=== PATIENT | female | born 1990 | race Caucasian/White ===

== ENCOUNTER 2022-07-06 13:28 | Emergency (ER) | payer OTHER, SELFPAY ==
--- NOTE | ~2022-07-06 | US_ITS ---
EXAMINATION: US PELVIS CLINICAL INFORMATION: IUD placement, assess location. COMPARISON: None TECHNIQUE: Ultrasound of the pelvis is performed using both transabdominal and transvaginal transducers along with Doppler. Transvaginal imaging is performed due to inadequate visualization transabdominally. FINDINGS: Uterus: Anteverted/anteflexed measuring 8.5 x 3.0 x 4.0 cm. The endometrial stripe measures up to 0.5 cm at the level the fundus. The IUD is positioned within the endometrial canal at the level of the body with tip just inferior to the fundus. The cervix is closed without abnormality. No free fluid in the cul-de-sac. Right ovary: measures 4.3 x 3.5 x 3.8 cm. 30 cc volume. Doppler showed no abnormal vascular flow. Left ovary: measures 3.3 x 3.0 x 2.8 cm. 15 cc volume. Doppler showed no abnormal vascular flow. US/US pelvic and transvaginal IMPRESSION: 1. IUD seen within the endometrial canal just inferior to the fundus without associated abnormality.
--- NOTE | ~2022-07-06 | CT_ITS ---
EXAMINATION: CT ABDOMEN AND PELVIS WITHOUT CONTRAST CLINICAL INFORMATION: Lower abdominal/pelvic pain COMPARISON: Pelvic ultrasound earlier today which was normal TECHNIQUE: Multidetector volumetric imaging was performed from the superior aspect of the liver through the pubic symphysis. Sagittal and coronal reformatted images were obtained on the technologist's workstation. This CT examination was performed using dose optimization techniques as appropriate, variously including the following: *Automated exposure control *Adjustment of mA and/or kV according to patient size (this includes techniques or standardized protocols for targeted exams where dose is matched to indication/reason for exam; i.e. extremities or head) *Use of iterative reconstruction technique DLP: 543 mGy-cm FINDINGS: LUNG BASES: The visualized lung bases are unremarkable. LIVER, GALLBLADDER, AND BILIARY TREE: The liver is normal in size, shape, and attenuation. No focal hepatic lesion or biliary ductal dilatation is present. The gallbladder is unremarkable with no evidence of radiopaque gallstones, gallbladder wall thickening, or obvious pericholecystic inflammatory changes. PANCREAS: Unremarkable. SPLEEN: Unremarkable. ADRENAL GLANDS: Unremarkable. KIDNEYS AND URETERS: The kidneys are normal in size, shape, and attenuation. No hydronephrosis, hydroureter, or calculi seen. No perinephric stranding. BLADDER: Empty but unremarkable GASTROINTESTINAL TRACT: The small and large bowel are unremarkable. The appendix is unremarkable. ABDOMINAL WALL: No significant hernia is appreciated. LYMPH NODES: No retroperitoneal lymphadenopathy is seen. Some small shotty lymph nodes are present. VASCULAR: Unremarkable. PELVIC VISCERA: 2 adjacent cysts are present in the left adnexa one more anteriorly measuring 2.6 x 2.4 x 2.8 cm and 1 just behind is in front of the rectum measuring 3.7 x 3.0 x 3.5 cm. These are consistent with the simple cysts seen in both the right as well as left ovary. No follow-up should be necessary. An anteverted uterus is seen containing an IUD. OSSEOUS STRUCTURES: Unremarkable. CT/CT abdomen pelvis wo IV con IMPRESSION: 1. A cause for the patient's lower abdominal pain has not been found. 2. Incidental note made of bilateral ovarian cysts which need no further follow-up and an IUD in the uterus. Fleischner guidelines were followed.
--- NOTE | 2022-07-06 13:36 | ED_ITS ---
HPI - Female Genitourinary General Chief complaint: Urogenital-Female <Luzmaria Ricketts CNP - Last Filed: 07/06/22 13:42> Stated complaint: IUD complications <Luzmaria Ricketts CNP - Last Filed: 07/06/22 13:42> Time Seen by Provider: 07/06/22 16:25 <Luzmaria Ricketts CNP - Last Filed: 07/06/22 13:42> Source: patient <ARABELLA Ferreira - Last Filed: 07/06/22 19:16> Mode of arrival: ambulatory <ARABELLA Ferreira - Last Filed: 07/06/22 19:16> Limitations: no limitations <ARABELLA Ferreira - Last Filed: 07/06/22 19:16> History of Present Illness HPI Narrative: 31-year-old female presents with concerns of vaginal discharge status post getting her IUD placed, patient tells me 2 weeks ago she [facility], since then she has been having pelvic pain, large amounts of discharge, she tells me this is never happened to her before. They tested her for gonorrhea and [facility]lamydia [facility]. She has no concerns for STDs, she tells me she has had 1 sexual partner this entire time. She is not concerned about . She reports lower abdominal cramping and she feels like something just isn't right where her IUD is. Denies fevers, chills, chest pain, shortness of breath, nausea, vomiting, headache, vision changes, dizziness and weakness. <ARABELLA Ferreira - Last Filed: 07/06/22 19:16> Related Data Home medications: Previous Rx's Medication Instructions Recorded ketorolac 10 mg tablet 10 mg PO TID PRN pain 5 days #15 07/06/22 tabs <Luzmaria Ricketts CNP - Last Filed: 07/06/22 13:42> Allergies/Adverse reactions: Allergies Allergy/AdvReac Type Severity Reaction Status Date / Time cefaclor [From [facility]] Allergy Unknown Unknown Verified 07/06/22 13:40 <Luzmaria Ricketts CNP - Last Filed: 07/06/22 13:42> Review of Systems Review of Systems: Constitutional : No Weight loss, No Fever, No Chills, No Fatigue, No Malaise ENT/Mouth : No sore throat, No Rhinorrhea Eyes: No Eye Pain, No Swelling, No Redness Cardiovascular : No Chest Pain, No SOB, No Dyspnea on Exertion, No Orthopnea, No Edema, No Palpitations Respiratory : No Cough, No Sputum, No Wheezing Gastrointestinal : No Nausea, No Vomiting, No Diarrhea, No Constipation, No abdominal Pain, No Hematochezia, No Melena Genitourinary : No Dysuria, No Urinary Frequency, No Hematuria, + vaginal discharge Musculoskeletal : No joint pain, No Myalgias, No Joint Swelling Skin : No Skin Lesions, No rash Neuro : No Weakness, No Numbness, No Dizziness, No Headache Psych : No Anxiety/Panic, No Depression All other systems reviewed and are negative <ARABELLA Ferreira - Last Filed: 07/06/22 19:16> Yes all other systems are reviewed and are negative <ARABELLA Ferreira - Last Filed: 07/06/22 19:16> [facility] Past Medical History Attestation statement: The following information was validated with the patient. <ARABELLA Ferreira - Last Filed: 07/06/22 19:16> Source: old records reviewed and nursing notes reviewed <ARABELLA Ferreira - Last Filed: 07/06/22 19:16> Social History Social History: Social History Advance Directives: No Advance Directives Information Provided: No <Luzmaria Ricketts CNP - Last Filed: 07/06/22 13:42> Physical Exam Vital Signs: Vital Signs: Last Vital Signs Temp 98.2 F 07/06/22 18:00 Pulse 98 07/06/22 18:00 Resp 16 07/06/22 18:00 BP 129/88 07/06/22 18:00 Pulse Ox 100 07/06/22 18:00 O2 Del Method 07/06/22 18:00 BMI result Body Mass Index 31.1 <Luzmaria Ricketts CNP - Last Filed: 07/06/22 13:42> Vital Signs: Last Vital Signs Temp 98.2 F 07/06/22 18:00 Pulse 98 07/06/22 18:00 Resp 16 07/06/22 18:00 BP 129/88 07/06/22 18:00 Pulse Ox 100 07/06/22 18:00 O2 Del Method 07/06/22 18:00 BMI result Body Mass Index 31.1 vss <ARABELLA Ferreira - Last Filed: 07/06/22 19:16> Appearance: Alert.? Oriented X3.? No acute distress.? Head: Normocephalic, atraumatic, no step-offs or deformities Eyes: Pupils equal, round and reactive to light.? Neck: Normal inspection.? Neck supple.? CVS: Normal heart rate and rhythm.? Pulses normal.? Respiratory: No respiratory distress.? Breath sounds normal.? Abdomen: Soft and nontender.? Skin: Skin warm and dry.? Normal skin color.? Normal skin turgor.? Extremities: No lower extremity edema.? No calf ttp. 5/5 strength to bilateral upper and lower extremities Sensitive exam: large amount of curdlike discharge and yellow discharge in vaginal canal. Normal cervix w/ IUD strings visible about 1 inch visualized. Small ulcerated nonpainful lesions on vaginal canal Back: No midline tenderness, no C-spine tenderness, full range of motion, no CVA tenderness bilaterally Neuro: Oriented X 3.? No motor deficit.? No sensory deficit. CN 2-12 intact <ARABELLA Ferreira - Last Filed: 07/06/22 19:16> Course Course Course Narrative: This is an RME: Additional HPI, ROS, PE not included below will be deferred to primary provider. Patient is a 31 female who presents emergency department for evaluation of IUD concern. Reports 2 weeks ago she [facility]. Over the past 2 days she has been developing sharp pain, change in vaginal discharge; large yellow thick mucus. She is unable to feel the strings of her IUD. Denies pain with intercourse after insertion, but the was prior to her pain. Plan: labs, BV panel, urinalysis, hCG, pelvic ultrasound <Luzmaria Ricketts CNP - Last Filed: 07/06/22 13:42> Reevaluation(s) Reevaluation #1: CBC appears to be within normal limits. Chemistry with no acute findings requiring intervention. UA clean. Urine negative. Pelvic ultrasound with an IUD seen within the endometrial canal just inferior to the fundus without associated abnormality. CT of the abdomen and pelvis unremarkable. A cause for patient's lower abdominal pain not found. Incidental note made of b ilateral ovarian cyst. This case was discussed with OBGYN Dr. Rodrigues who recommends removal of IUD that is causing patient significant discomfort, I did have a conversation with patient patient would like the IUD removed, Dr. Rodrigues does recommend secondary control method, patient tells me she has control pills at home which she was taking before and tolerating well. Will remove IUD. <ARABELLA Ferreira - Last Filed: 07/06/22 19:16> Time: 19:15 <ARABELLA Ferreira - Last Filed: 07/06/22 19:16> Reevaluation #2: IUD removal successful, there was a very small amount of spotting afterwards. Patient tolerated procedure well. No complications. Will have her follow-up with OBGYN. Will give Toradol for pain control for home. Educated patient on diagnosis and treatment plan, answered all question, patient verbalizes understanding. At this time patient will be discharged home, advised to return with new or worsening symptoms. Educated on worrisome signs and symptoms and when to return. At this time I feel comfortable discharge home. <ARABELLA Ferreira - Last Filed: 07/06/22 19:16> Time: 19:16 <ARABELLA Ferreira - Last Filed: 07/06/22 19:16> Medications Administered Discontinued Medications Generic Name Dose Route Start Last Admin Trade Name Freq PRN Reason Stop Dose Admin Ketorolac Tromethamine 15 mg 07/06/22 17:19 07/06/22 17:27 Ketorolac Tromethamine 15 Mg/Ml Vial IM 07/06/22 17:20 Not Given ONCE ONE <Luzmaria Ricketts CNP - Last Filed: 07/06/22 13:42> Medications Administered Discontinued Medications Generic Name Dose Route Start Last Admin Trade Name Freq PRN Reason Stop Dose Admin Ketorolac Tromethamine 15 mg 07/06/22 17:19 07/06/22 17:27 Ketorolac Tromethamine 15 Mg/Ml Vial IM 07/06/22 17:20 Not Given ONCE ONE <ARABELLA Ferreira - Last Filed: 07/06/22 19:16> Medical Decision Making Medical Decision Making [facility] Narrative: 1710 31 year old female presents w/ concerns she may have an issue with her IUD, reports yellow white vaginal discharge. PE w/ large amount of curdlike discharge and yellow discharge in vaginal canal. Normal cervix w/ IUD strings visible about 1 inch visualized. Small ulcerated nonpainful lesions on vaginal canal Concerns for STD, STI, yeast. Also concerning for possible HPV. Likely irritation secondary to placement of new copper IUD. Unlikely intra-abdominal processes, history and physical exam not consistent with appendicitis, cholecystitis or acute abdomen. Plan at this time basic labs, urine, STD/STI testing, pelvic exam, ultrasound, CT of the abdomen and pelvis. <ARABELLA Ferreira Last Filed: 07/06/22 19:16> Differential Diagnosis Differential Diagnoses: The differential diagnosis associated with the presentation includes <ARABELLA Ferreira - Last Filed: 07/06/22 19:16> Concerns for STD, STI, yeast. Also concerning for possible HPV. Likely irritation secondary to placement of new copper IUD. Unlikely intra-abdominal processes, history and physical exam not consistent with appendicitis, cholecystitis or acute abdomen. <ARABELLA Ferreira - Last Filed: 07/06/22 19:16> Admission/Observation Consideration of admission/observation: Escalation of care including admission/observation considered <ARABELLA Ferreira - Last Filed: 07/06/22 19:16> Lab Data [facility] Lab Attestation statement: I reviewed the patient's lab results. <ARABELLA Ferreira - Last Filed: 07/06/22 19:16> Reviewed, unremarkable <ARABELLA Ferreira - Last Filed: 07/06/22 19:16> Result Diagrams: 07/06/22 13:51 07/06/22 13:51 <Luzmaria Ricketts CNP - Last Filed: 07/06/22 13:42> Labs: Lab Results 03/11/2107/06/22 07/06/22 Range/Units 13:51 13:51 17:21 WBC 8.7 (4.8-10.8) X10*3/uL RBC 4.56 (4.20-5.50) X10*6/uL Hgb 13.3 (12.0-16.0) g/dl Hct 41.0 (37.0-47.0) % MCV 89.9 (80.0-98.0) fL MCH 29.2 (27.0-33.0) pg MCHC 32.4 (31.0-35.0) g/dl RDW 12.8 (11.0-16.0) % Plt Count 325 (160-400) X10*3/uL MPV 11.4 (9.4-12.3) fL Immature Gran % (Auto) 0.3 (0.0-0.4) % Neut % (Auto) 64.0 (45-73) % Lymph % (Auto) 27.4 (20-40) % Benzie % (Auto) 7.1 (2-11) % Eos % (Auto) 0.7 (0-4) % Baso % (Auto) 0.5 (0-2) % Lymph # (Auto) 2.4 (1.2-4.9) X10*3/uL Benzie # (Auto) 0.6 (0.1-1.2) X10*3/uL Eos # (Auto) 0.1 (0.0-0.4) X10*3/uL Baso # (Auto) 0.0 (0.0-0.2) X10*3/uL Abs Immat Gran (auto) 0.03 (0.00-0.03) X10*3/uL Absolute Neuts (auto) 5.6 (2.0-8.3) x10*3/uL Absolute Nucleated RBC 0.000 (0.0-0.012) X10*3/uL Nucleated RBC % (auto) 0.0 (0.0-0.2) /100WBC Sodium 140 (135-145) mmol/L Potassium 4.3 (3.3-5.1) mmol/L Chloride 106 (96-108) mmol/L Carbon Dioxide 25 (22-29) mmol/L Anion Gap 13 (12-20) BUN 14 (9-16) mg/dL Creatinine 0.68 (0.5-1.4) mg/dL Estim Creat Clear Calc 117.3 Estimated GFR > 60 Random Glucose 95 (60-115) mg/dL Calcium 9.7 (8.4-10.2) mg/dL Total Bilirubin 0.5 (0.0-1.0) mg/dL AST 17 (5-31) U/L ALT 25 (0-31) U/L Alkaline Phosphatase 65 (39-117) U/L Total Protein 6.7 (6.5-8.0) g/dL Albumin 4.1 (3.5-5.0) g/dL Urine Color Yellow Urine Appearance Clear Urine pH 6.5 (5.0-9.0) Ur Specific [facility] 1.015 (1.005-1.025) Urine Protein Negative (Neg-Trace) mg/dL Urine Glucose (UA) Negative (Negative) mg/dL Urine Ketones Trace (Negative) mg/dL Urine Blood Negative (Negative) Urine Nitrite Negative (Negative) Ur Leukocyte Esterase Negative (Negative) Urine Test (NEGATIVE) 07/06/22 Range/Units 17:21 WBC (4.8-10.8) X10*3/uL RBC (4.20-5.50) X10*6/uL Hgb (12.0-16.0) g/dl Hct (37.0-47.0) % MCV (80.0-98.0) fL MCH (27.0-33.0) pg MCHC (31.0-35.0) g/dl RDW (11.0-16.0) % Plt Count (160-400) X10*3/uL MPV (9.4-12.3) fL Immature Gran % (Auto) (0.0-0.4) % Neut % (Auto) (45-73) % Lymph % (Auto) (20-40) % Benzie % (Auto) (2-11) % Eos % (Auto) (0-4) % Baso % (Auto) (0-2) % Lymph # (Auto) (1.2-4.9) X10*3/uL Benzie # (Auto) (0.1-1.2) X10*3/uL Eos # (Auto) (0.0-0.4) X10*3/uL Baso # (Auto) (0.0-0.2) X10*3/uL Abs Immat Gran (auto) (0.00-0.03) X10*3/uL Absolute Neuts (auto) (2.0-8.3) x10*3/uL Absolute Nucleated RBC (0.0-0.012) X10*3/uL Nucleated RBC % (auto) (0.0-0.2) /100WBC Sodium (135-145) mmol/L Potassium (3.3-5.1) mmol/L Chloride (96-108) mmol/L Carbon Dioxide (22-29) mmol/L Anion Gap (12-20) BUN (9-16) mg/dL Creatinine (0.5-1.4) mg/dL Estim Creat Clear Calc Estimated GFR Random Glucose (60-115) mg/dL Calcium (8.4-10.2) mg/dL Total Bilirubin (0.0-1.0) mg/dL AST (5-31) U/L ALT (0-31) U/L Alkaline Phosphatase (39-117) U/L Total Protein (6.5-8.0) g/dL Albumin (3.5-5.0) g/dL Urine Color Urine Appearance Urine pH (5.0-9.0) Ur Specific [facility] (1.005-1.025) Urine Protein (Neg-Trace) mg/dL Urine Glucose (UA) (Negative) mg/dL Urine Ketones (Negative) mg/dL Urine Blood (Negative) Urine Nitrite (Negative) Ur Leukocyte Esterase (Negative) Urine Test NEGATIVE (NEGATIVE) <Luzmaria Ricketts, APPLICATION OPERATIONS ENGINEER - Last Filed: 07/06/22 13:42> Lab Results 07/06/22 07/06/22 07/06/22 Range/Units 13:51 13:51 17:21 WBC 8.7 (4.8-10.8) X10*3/uL RBC 4.56 (4.20-5.50) X10*6/uL Hgb 13.3 (12.0-16.0) g/dl Hct 41.0 (37.0-47.0) % MCV 89.9 (80.0-98.0) fL MCH 29.2 (27.0-33.0) pg MCHC 32.4 (31.0-35.0) g/dl RDW 12.8 (11.0-16.0) % Plt Count 325 (160-400) X10*3/uL MPV 11.4 (9.4-12.3) fL Immature Gran % (Auto) 0.3 (0.0-0.4) % Neut % (Auto) 64.0 (45-73) % Lymph % (Auto) 27.4 (20-40) % Benzie % (Auto) 7.1 (2-11) % Eos % (Auto) 0.7 (0-4) % Baso % (Auto) 0.5 (0-2) % Lymph # (Auto) 2.4 (1.2-4.9) X10*3/uL Benzie # (Auto) 0.6 (0.1-1.2) X10*3/uL Eos # (Auto) 0.1 (0.0-0.4) X10*3/uL Baso # (Auto) 0.0 (0.0-0.2) X10*3/uL Abs Immat Gran (auto) 0.03 (0.00-0.03) X10*3/uL Absolute Neuts (auto) 5.6 (2.0-8.3) x10*3/uL Absolute Nucleated RBC 0.000 (0.0-0.012) X10*3/uL Nucleated RBC % (auto) 0.0 (0.0-0.2) /100WBC Sodium 140 (135-145) mmol/L Potassium 4.3 (3.3-5.1) mmol/L Chloride 106 (96-108) mmol/L Carbon Dioxide 25 (22-29) mmol/L Anion Gap 13 (12-20) BUN 14 (9-16) mg/dL Creatinine 0.68 (0.5-1.4) mg/dL Estim Creat Clear Calc 117.3 Estimated GFR > 60 Random Glucose 95 (60-115) mg/dL Calcium 9.7 (8.4-10.2) mg/dL Total Bilirubin 0.5 (0.0-1.0) mg/dL AST 17 (5-31) U/L ALT 25 (0-31) U/L Alkaline Phosphatase 65 (39-117) U/L Total Protein 6.7 (6.5-8.0) g/dL Albumin 4.1 (3.5-5.0) g/dL Urine Color Yellow Urine Appearance Clear Urine pH 6.5 (5.0-9.0) Ur Specific [facility] 1.015 (1.005-1.025) Urine Protein Negative (Neg-Trace) mg/dL Urine Glucose (UA) Negative (Negative) mg/dL Urine Ketones Trace (Negative) mg/dL Urine Blood Negative (Negative) Urine Nitrite Negative (Negative) Ur Leukocyte Esterase Negative (Negative) Urine Test (NEGATIVE) 07/06/22 Range/Units 17:21 WBC (4.8-10.8) X10*3/uL RBC (4.20-5.50) X10*6/uL Hgb (12.0-16.0) g/dl Hct (37.0-47.0) % MCV (80.0-98.0) fL MCH (27.0-33.0) pg MCHC (31.0-35.0) g/dl RDW (11.0-16.0) % Plt Count (160-400) X10*3/uL MPV (9.4-12.3) fL Immature Gran % (Auto) (0.0-0.4) % Neut % (Auto) (45-73) % Lymph % (Auto) (20-40) % Benzie % (Auto) (2-11) % Eos % (Auto) (0-4) % Baso % (Auto) (0-2) % Lymph # (Auto) (1.2-4.9) X10*3/uL Benzie # (Auto) (0.1-1.2) X10*3/uL Eos # (Auto) (0.0-0.4) X10*3/uL Baso # (Auto) (0.0-0.2) X10*3/uL Abs Immat Gran (auto) (0.00-0.03) X10*3/uL Absolute Neuts (auto) (2.0-8.3) x10*3/uL Absolute Nucleated RBC (0.0-0.012) X10*3/uL Nucleated RBC % (auto) (0.0-0.2) /100WBC Sodium (135-145) mmol/L Potassium (3.3-5.1) mmol/L Chloride (96-108) mmol/L Carbon Dioxide (22-29) mmol/L Anion Gap (12-20) BUN (9-16) mg/dL Creatinine (0.5-1.4) mg/dL Estim Creat Clear Calc Estimated GFR Random Glucose (60-115) mg/dL Calcium (8.4-10.2) mg/dL Total Bilirubin (0.0-1.0) mg/dL AST (5-31) U/L ALT (0-31) U/L Alkaline Phosphatase (39-117) U/L Total Protein (6.5-8.0) g/dL Albumin (3.5-5.0) g/dL Urine Color Urine Appearance Urine pH (5.0-9.0) Ur Specific [facility] (1.005-1.025) Urine Protein (Neg-Trace) mg/dL Urine Glucose (UA) (Negative) mg/dL Urine Ketones (Negative) mg/dL Urine Blood (Negative) Urine Nitrite (Negative) Ur Leukocyte Esterase (Negative) Urine Test NEGATIVE (NEGATIVE) <ARABELLA Ferreira Last Filed: 07/06/22 19:16> Independent Interpretation I performed an independent interpretation of an: Ultrasound (. IUD seen within the endometrial canal just inferior to the fundus without associated abnormality. ) and CT Scan <ARABELLA Ferreira - Last Filed: 07/06/22 19:16> Radiology Impression Discussion of test interpretation with radiology: I have reviewed the radiologist's reading. <ARABELLA Ferreira - Last Filed: 07/06/22 19:16> Core Measures AMI core measures followed: Yes <RAABELLA Ferreira Last Filed: 07/06/22 19:16> Measure exclusions: not indicated <ARABELLA Ferreira - Last Filed: 07/06/22 19:16> Critical Care Time Critical Care Time Critical Care Time: Yes <ARABELLA Ferreira Last Filed: 07/06/22 19:16> Total Critical Care Time: 35 <ARABELLA Ferreira - Last Filed: 07/06/22 19:16> Attestation: I attest to this time spent taking care of the patient, obtaining history, physical, reviewing labs, imaging, speaking to my attending, speaking to specialist. <ARABELLA Ferreira - Last Filed: 07/06/22 19:16> Discharge Plan Discharge Clinical Impression: Pelvic pain, Vaginal discharge, Encounter for IUD removal <Luzmaria Ricketts CNP - Last Filed: 07/06/22 13:42> Patient Disposition: Home, Self-Care <Luzmaria Ricketts CNP - Last Filed: 07/06/22 13:42> Instructions: Pelvic Pain in Women (ED), Pelvic Pain (ED), Vaginal Discharge (ED), Warm Compress or Soak (ED) <Luzmaria Ricketts CNP - Last Filed: 07/06/22 13:42> Additional Instructions: Take your medications as prescribed. If you were prescribed antibiotics today, it is important that you take your medication to their entirety, do not skip any doses, do not finish them early. Follow-up with your primary care provider this week. Please follow-up with OBGYN as soon as possible call tomorrow Return to the emergency department with new or worsening symptoms. Such as fevers, chills, chest pain, shortness of breath, nausea, vomiting, dizziness, headache, vision changes, lethargy Also return to the emergency department if your bleeding through more than 1 pad every 2 hours In case of emergency call 911 Your gonorrhea, chlamydia, bacterial vaginosis test still pending. Your test for Trichomonas and yeast came back negative today. Toradol has been sent to your pharmacy, you tolerated this well in the department. Please take this as prescribed do not take this with ibuprofen, or other NSAIDs, do not mix this with alcohol. Side effects of this medication including increased risk for bleeding and possible kidney injury. US/US pelvic and transvaginal IMPRESSION: 1. IUD seen within the endometrial canal just inferior to the fundus without associated abnormality. CT/CT abdomen pelvis wo IV con IMPRESSION: 1.? A cause for the patient's lower abdominal pain has not been found. 2.? Incidental note made of bilateral ovarian cysts which need no further follow-up and an IUD in the uterus. ? Fleischner guidelines were followed. <Luzmaria Ricketts CNP - Last Filed: 07/06/22 13:42> Prescriptions: New ketorolac 10 mg tablet 10 mg PO TID PRN (Reason: pain) 5 Days Qty: 15 0RF <Luzmaria Ricketts CNP - Last Filed: 07/06/22 13:42> Referrals: Etienne Jerome PA [Primary Care Provider] - 2 days Yonny Rodrigues MD [Physician] - 1 day <Luzmaria Ricketts CNP - Last Filed: 07/06/22 13:42> Stand Alone Forms: Work/School Release <Luzmaria Ricketts CNP - Last Filed: 07/06/22 13:42>
[2022-07-06 13:38] VITALS: BP 149/96; PULSE 88; RESP 18; TEMP 36.8; O2SAT 99; BMI 31.1
[2022-07-06 13:58] LABS: MANUAL DIFF FLAG NO
[2022-07-06 14:05] LABS: Basophils Percent Auto 0.5 % (0-2); Eosinophils Absolute Auto 0.1 X10*3/uL (0.0-0.4); Eosinophils Percent Auto 0.7 % (0-4); Hemoglobin 13.3 g/dl (12.0-16.0); Imm Gran Abs Auto 0.03 X10*3/uL (0.00-0.03); Imm Gran Pct Auto 0.3 % (0.0-0.4); Lymphocytes Absolute Auto 2.4 X10*3/uL (1.2-4.9); Lymphocytes Percent Auto 27.4 % (20-40); Mean Corpuscular HGB Conc 32.4 g/dl (31.0-35.0); Mean Corpuscular Hemoglobin 29.2 pg (27.0-33.0); Mean Corpuscular Volume 89.9 fL (80.0-98.0); Mean Platelet Volume 11.4 fL (9.4-12.3); Monocytes Absolute Auto 0.6 X10*3/uL (0.1-1.2); Monocytes Percent Auto 7.1 % (2-11); Neutrophils Absolute Auto 5.6 x10*3/uL (2.0-8.3); Platelet Count 325 X10*3/uL (160-400); Red Blood Count 4.56 X10*6/uL (4.20-5.50); Red Cell Distribution Width 12.8 % (11.0-16.0); White Blood Count 8.7 X10*3/uL (4.8-10.8)
[2022-07-06 14:28] LABS: Alanine Aminotransferase 25 U/L (0-31); Albumin Level 4.1 g/dL (3.5-5.0); Alkaline Phosphatase 65 U/L (39-117); Anion Gap 13 (12-20); Aspartate Amino Transferase 17 U/L (5-31); Bilirubin Total 0.5 mg/dL (0.0-1.0); Blood Urea Nitrogen 14 mg/dL (9-16); Calcium 9.7 mg/dL (8.4-10.2); Carbon Dioxide 25 mmol/L (22-29); Chloride 106 mmol/L (96-108); Creatinine Clr Calc Pharmacy 117.3; Estimated Glomerular Filt Rate > 60; Glucose Random 95 mg/dL (60-115); Potassium 4.3 mmol/L (3.3-5.1); Sodium 140 mmol/L (135-145); Total Protein 6.7 g/dL (6.5-8.0)
[2022-07-06 17:45] LABS: Appearance Urine Clear; Color Urine Yellow; Glucose Urine UA Negative (Negative); Leukocyte Esterase Urine Negative (Negative); Nitrite Urine Negative (Negative); PH 6.5 (5.0-9.0); Specific Gravity - Urine 1.015 (1.005-1.025); Urine Blood Negative (Negative); Urine Ketones Trace mg/dL (Negative); Urine Protein Negative (Neg-Trace)
[2022-07-06 17:54] LABS: UPreg QC Valid YES; Urine Pregnancy NEGATIVE (NEGATIVE)
[2022-07-06 18:00] VITALS: BP 129/88; PULSE 98; RESP 16; TEMP 36.8; O2SAT 100
--- NOTE | 2022-07-06 19:20 | P.CONOB_ITS ---
INFORMATION TECHNOLOGY COORDINATOR - CN: HPI Data of Consult Consult date: 07/06/22 Primary Care Provider: ARABELLA Dowell Consult Narrative Narrative: Late entry note I was consulted on Maeve Jimenes is a 31 year old female presenting the emergency room complaining of pelvic discomfort 2 weeks after IUD insertion associated with vaginal discharge with no itching or foul odor .? According to the patient, she [facility] and both [facility].? No fevers, chills, no nausea, vomiting, no other concerns. cc:: CC: OB [facility] Social History Social History Advance Directives: No Advance Directives Information Provided: No Meds Allergies Allergy/AdvReac Type Severity Reaction Status Date / Time cefaclor [From Ceclor] Allergy Unknown Unknown Verified 07/06/22 13:40 INFORMATION TECHNOLOGY COORDINATOR Physical Exam Vitals Vital signs: Temp Pulse Resp BP Pulse Ox O2 Del Method 98.2 F 98 16 129/88 100 07/06/22 18:00 07/06/22 18:00 07/06/22 18:00 07/06/22 18:00 07/06/22 18:00 07/06/22 18:00 BMI result Body Mass Index 31.1 Additional Comments: Reported by suicide in the car ARABELLA Ferreira as the following: Abdomen: Soft and nontender.? Pelvic exam: large amount of discharge and yellow discharge in vaginal canal. Normal cervix w/ IUD strings visible . Vaginal lesions non ulcerated looking like condyloma acuminata INFORMATION TECHNOLOGY COORDINATOR - Results Labs 07/06/22 13:51 07/06/22 13:51 Labs: Short CBC 07/06/22 Range/Units 13:51 WBC 8.7 (4.8-10.8) X10*3/uL Hgb 13.3 (12.0-16.0) g/dl Hct 41.0 (37.0-47.0) % Plt Count 325 (160-400) X10*3/uL BMP 07/06/22 13:51 Sodium 140 Potassium 4.3 Chloride 106 Carbon Dioxide 25 BUN 14 Creatinine 0.68 Calcium 9.7 Liver Function 07/06/22 Range/Units 13:51 Total Bilirubin 0.5 (0.0-1.0) mg/dL AST 17 (5-31) U/L ALT 25 (0-31) U/L Alkaline Phosphatase 65 (39-117) U/L Albumin 4.1 (3.5-5.0) g/dL Urine 07/06/22 07/06/22 Range/Units 17:21 17:21 Urine Color Yellow Urine Appearance Clear Urine pH 6.5 (5.0-9.0) Ur Specific [place] 1.015 (1.005-1.025) Urine Protein Negative (Neg-Trace) mg/dL Urine Glucose (UA) Negative (Negative) mg/dL Urine Test NEGATIVE (NEGATIVE) Imaging US - abdomen: Radiologist's impression: ITS Impressions Pelvic/Transvag US 07/06/22 14:14 IMPRESSION: 1. IUD seen within the endometrial canal just inferior to the fundus without associated abnormality. Abdomen/Pelvis CT 07/06/22 18:13 IMPRESSION: 1. A cause for the patient's lower abdominal pain has not been found. 2. Incidental note made of bilateral ovarian cysts which need no further follow-up and an IUD in the uterus. Fleischner guidelines were followed. Assessment and Plan (1) IUD complication: Status: Acute (2) Vaginal discharge: Status: Acute Plan Recommended to ARABELLA Grant the following: GC/chlamydia, BV panel Trichomonas if any of the above tests are positive to treat accordingly. Since the patient's complaining of pelvic discomfort since the day of IUD insertion and the location of the IUD by ultrasound is inferior to the fundus, recommended IUD removal. Instructions to be given to patient to come back to emergency room in case of pelvic pain, fever above 100.4, nausea or vomiting, heavy vaginal bleeding and follow-up in the OBGYN office in 1-2 days 40 evaluation and counseling regarding contraception, and to use a backup method for control till then to prevent . I spent a total of 20 minutes reviewing the chart, communicating the emergency room provider and documenting in the medical record Time Spent With Patient Time: Total time managing care of this patient today ____ minutes.
[2022-07-06] MEDS: Ketorolac Tromethamine 15 MG/ML VIAL 30 MG IM (20:34)
[2022-07-07 09:16] LABS: CT PCR NOT DETECTED (Not Detect.); NG PCR NOT DETECTED (Not Detect.)
[2022-07-07 09:39] LABS: BV Int Neg Control Negative (Negative); BV Int Pos Control Positive (Positive)
== END 2022-07-06 20:44 | disposition home or self-care (01) ==
PROVIDERS: Nurse Practitioner Family; Emergency Provider Emergency Medicine; PCP Physician Assistant Medical
DX: N89.8 Other specified noninflammatory disorders of vagina (principal); R10.2 Pelvic and perineal pain; Z30.432 Encounter for removal of intrauterine contraceptive device; Z79.899 Other long term (current) drug therapy
CPT/HCPCS: 0353U; 36415; 58301; 74176; 76830; 76856; 80053; 81003; 81025; 85025; 87480; 87510; 87660; 96372; 99283; 99284; J1885

== ENCOUNTER 2022-07-19 09:19 | Outpatient (REF) | payer OTHER, SELFPAY | END 2022-07-19 09:20 | disposition home or self-care (01) | LOC: HO.LNP 09:19 | PROVIDERS: PCP Physician Assistant Medical; Visit Provider Obstetrics & Gynecology | DX: Z01.419 Encounter for gynecological examination (general) (routine) without abnormal findings (principal) | CPT/HCPCS: 81025; 88142 ==

== ENCOUNTER 2023-05-16 22:30 | Emergency (ER) | payer OTHER, SELFPAY ==
--- NOTE | 2023-05-16 | ECG_ITS ---
Test Reason : NAUSEA Blood Pressure : / mmHG Vent. Rate : 098 BPM Atrial Rate : 098 BPM P-R Int : 140 ms QRS Dur : 088 ms QT Int : 352 ms P-R-T Axes : 051 055 028 degrees QTc Int : 449 ms Normal sinus rhythm Normal ECG No previous ECGs available Referred By: Generic ED Physician Electronically Signed By:SENG PEREIRA
[2023-05-16 22:56] VITALS: BP 116/87; PULSE 112; RESP 18; TEMP 37.3; O2SAT 96; BMI 35.9
[2023-05-16] MEDS: Ondansetron ODT 4 MG TAB.RAPDIS TRANSLINGU (23:02)
[2023-05-16 23:34] LABS: MANUAL DIFF FLAG NO
[2023-05-16 23:36] LABS: Basophils Percent Auto 0.4 % (0-2); Eosinophils Percent Auto 0.1 % (0-4); Hematocrit 45.3 % (37.0-47.0); Hemoglobin 15.3 g/dl (12.0-16.0); Imm Gran Abs Auto 0.02 X10*3/uL (0.00-0.03); Imm Gran Pct Auto 0.3 % (0.0-0.4); Lymphocytes Absolute Auto 0.5 X10*3/uL (1.2-4.9); Lymphocytes Percent Auto 6.7 % (20-40); Mean Corpuscular HGB Conc 33.8 g/dl (31.0-35.0); Mean Corpuscular Hemoglobin 29.4 pg (27.0-33.0); Mean Corpuscular Volume 87.1 fL (80.0-98.0); Mean Platelet Volume 11.2 fL (9.4-12.3); Monocytes Absolute Auto 0.4 X10*3/uL (0.1-1.2); Monocytes Percent Auto 6.2 % (2-11); Neutrophils Absolute Auto 5.9 x10*3/uL (2.0-8.3); Neutrophils Percent Auto 86.3 % (45-73); Platelet Count 315 X10*3/uL (160-400); Red Cell Distribution Width 13.2 % (11.0-16.0); White Blood Count 6.8 X10*3/uL (4.8-10.8)
[2023-05-16 23:52] LABS: Alanine Aminotransferase 20 U/L (0-31); Alkaline Phosphatase 63 U/L (39-117); Anion Gap 17 (12-20); Aspartate Amino Transferase 14 U/L (5-31); Bilirubin Total 0.5 mg/dL (0.0-1.0); Blood Urea Nitrogen 20 mg/dL (9-16); Calcium 8.9 mg/dL (8.4-10.2); Carbon Dioxide 18 mmol/L (22-29); Chloride 106 mmol/L (96-108); Creatinine Clr Calc Pharmacy 107.9; Estimated Glomerular Filt Rate > 60; Glucose Random 149 mg/dL (60-115); Lipase 16 U/L (8-78); Potassium 3.3 mmol/L (3.3-5.1); Sodium 138 mmol/L (135-145); Total Protein 7.6 g/dL (6.5-8.0)
[2023-05-16 23:58] LABS: COVID-19 Test Negative (Negative); IDNOW Serial# 08D9AD1C; IDNOW Serial# 152EDE1D; Influenza A Negative (Negative); Influenza B2 Negative (Negative)
[2023-05-17 01:57] VITALS: BP 111/74; PULSE 97; RESP 16; TEMP 37.2; O2SAT 95
[2023-05-17 04:12] VITALS: BP 116/75; PULSE 87; RESP 17; TEMP 37.1; O2SAT 96
--- NOTE | 2023-05-17 04:31 | ED.NAVMDI ---
HPI - Nausea/Vomiting/Diarrhea General Chief complaint: Nausea/Vomiting/Diarrhea Stated complaint: vomiting,diarrhea x48 days Time Seen by Provider: 05/17/23 04:24 Source: patient Mode of arrival: ambulatory Limitations: no limitations History of Present Illness HPI Narrative: Patient comes to the emergency room complaining of 2-3 days of nausea vomiting and diarrhea. Complaining of abdominal cramping. Patient denies URI or UTI symptoms Related Data Previous Rx's Medication Instructions Recorded ketorolac 10 mg tablet 10 mg PO TID PRN pain 5 days #15 07/06/22 tabs desogestrel-e.estradiol 0.15 1 tab PO DAILY #84 tabs 04/18/23 mg-0.02 mg(21)/e.estrad 0.01 mg(5) tablet ([place] (28)) loperamide 2 mg capsule 2 mg PO Q4H PRN loose stool #20 05/17/23 caps ondansetron 4 mg disintegrating 4 mg PO Q6H PRN nausea and 05/17/23 tablet vomiting #14 tabs Allergies Allergy/AdvReac Type Severity Reaction Status Date / Time cefaclor [From [facility]] Allergy Unknown Unknown Verified 05/16/23 22:56 Review of Systems Review of Systems: Constitutional : No Weight loss, No Fever, No Chills, No Night Sweats, No Fatigue, No Malaise ENT/Mouth : No Hearing loss, No Ear Pain, No Nasal Congestion, No Sinus Pain, No Hoarseness, No sore throat, No Rhinorrhea, No Swallowing Difficulty Eyes: No Eye Pain, No Swelling, No Redness, No Foreign Body, No Discharge, No Vision Changes Cardiovascular : No Chest Pain, No SOB, No Dyspnea on Exertion, No Orthopnea, No Edema, No Palpitations Respiratory : No Cough, No Sputum, No Wheezing, No Smoke Exposure, No Dyspnea Gastrointestinal : Complaining of nausea vomiting and diarrhea for 3 days, No Constipation, complaining of abdominal cramping, No Hematochezia, No Melena Genitourinary : no irregular bleeding, No Dysuria, No Urinary Frequency, No Hematuria, No Urinary Incontinence, No Urgency, No Flank Pain, No Urinary Flow Changes, No Hesitancy Musculoskeletal : No joint pain, No Myalgias, No Joint Swelling Skin : No Skin Lesions, No rash Neuro : No Weakness, No Numbness, No Paresthesias, No Loss of Consciousness, No Dizziness, No Headache Psych : No Anxiety/Panic, No Depression, No SI/HI/AH/VH, No Social Issues, Heme/Lymph: No Bruising, No Bleeding,No Lymphadenopathy Endocrine : No Polyuria, No Polydipsia, No Temperature Intolerance [facility] Social History Social History Advance Directives: No Advance Directives Information Provided: No Physical Exam Vital Signs: Vital Signs: Last Vital Signs Temp 98.7 F 05/17/23 04:12 Pulse 84 05/17/23 05:58 Resp 17 05/17/23 05:58 BP 98/63 05/17/23 05:58 Pulse Ox 98 05/17/23 05:58 O2 Del Method Room Air 05/17/23 05:58 BMI result Body Mass Index 35.9 Const: Other: Appearance: Alert. Oriented X3. No acute distress. Eyes: Pupils equal, round and reactive to light. ENT: Pharynx normal. Dry oral mucosa Neck: Normal inspection. Neck supple. No lymph nodes noted. No crepitus CVS: Normal heart rate and rhythm. Pulses normal. Normal S1 and S2 Respiratory: No respiratory distress. Breath sounds normal. No Wheezing. No rales Abdomen: Soft and nontender. No rigidity. No distention. Skin: Skin warm and dry. Normal skin color. Normal skin turgor. Extremities: No lower extremity edema. No Lacerations. No Rash Neuro: Oriented X 3. No motor deficit. No sensory deficit. Moving all extremities. No slurred speech. CN 2 through 12 grossly intact Psych: calm, cooperative, normal affect Course Course Course Narrative: -patient receiving IV fluids, IV Zofran p.o. loperamide Medications Administered Generic Name Dose Route Start Last Admin Trade Name Freq PRN Reason Stop Dose Admin Sodium Chloride 1,000 mls @ 999 mls/hr 05/17/23 06:06 05/17/23 06:12 Ns IVCONT 05/17/23 07:06 999 mls/hr .Q1H1M ONE Administration Discontinued Medications Generic Name Dose Route Start Last Admin Trade Name Freq PRN Reason Stop Dose Admin Sodium Chloride 1,000 mls @ 999 mls/hr 05/17/23 04:30 05/17/23 05:39 Ns IVCONT 05/17/23 05:30 Infused .Q1H1M ONE Infusion Loperamide HCl 4 mg 05/17/23 04:30 05/17/23 04:39 Loperamide Hcl 2 Mg Capsule PO 05/17/23 04:31 4 mg ONCE ONE Administration Ondansetron HCl 4 mg 05/16/23 23:00 05/16/23 23:02 Ondansetron Odt 4 Mg Tab.Rapdis TRANSLINGU 05/16/23 23:01 4 mg ONCE ONE Administration Ondansetron HCl 4 mg 05/17/23 04:30 05/17/23 04:39 Ondansetron Hcl 4 Mg/2 Ml Vial IVPUSH 05/17/23 04:31 4 mg ONCE ONE Administration Medical Decision Making Medical Decision Making [facility] Narrative: -my interpretation of labs: Hematology within normal limits, chemistry shows mild dehydration, urinalysis negative for UTI -patient likely having a viral syndrome Differential Diagnosis Differential Diagnoses: The differential diagnosis associated with the presentation includes (Started this, gastroenteritis, UTI, pyelonephritis, dehydration) Admission/Observation Consideration of admission/observation: Escalation of care including admission/observation considered (Patient seemed to be dehydrated when she came to the ED, admission was considered) Lab Data [facility] Lab Attestation statement: I reviewed the patient's lab results. 05/16/23 23:25 05/16/23 23:25 Labs: Lab Results 05/16/23 05/17/23 Range/Units 23:25 06:00 WBC 6.8 (4.8-10.8) X10*3/uL RBC 5.20 (4.20-5.50) X10*6/uL Hgb 15.3 (12.0-16.0) g/dl Hct 45.3 (37.0-47.0) % MCV 87.1 (80.0-98.0) fL MCH 29.4 (27.0-33.0) pg MCHC 33.8 (31.0-35.0) g/dl RDW 13.2 (11.0-16.0) % Plt Count 315 (160-400) X10*3/uL MPV 11.2 (9.4-12.3) fL Immature Gran % (Auto) 0.3 (0.0-0.4) % Neut % (Auto) 86.3 H (45-73) % Lymph % (Auto) 6.7 L (20-40) % [place] % (Auto) 6.2 (2-11) % Eos % (Auto) 0.1 (0-4) % Baso % (Auto) 0.4 (0-2) % Lymph # (Auto) 0.5 L (1.2-4.9) X10*3/uL [place] # (Auto) 0.4 (0.1-1.2) X10*3/uL Eos # (Auto) 0.0 (0.0-0.4) X10*3/uL Baso # (Auto) 0.0 (0.0-0.2) X10*3/uL Abs Immat Gran (auto) 0.02 (0.00-0.03) X10*3/uL Absolute Neuts (auto) 5.9 (2.0-8.3) x10*3/uL Absolute Nucleated RBC 0.000 (0.0-0.012) X10*3/uL Nucleated RBC % (auto) 0.0 (0.0-0.2) /100WBC Sodium 138 (135-145) mmol/L Potassium 3.3 (3.3-5.1) mmol/L Chloride 106 (96-108) mmol/L Carbon Dioxide 18 L (22-29) mmol/L Anion Gap 17 (12-20) BUN 20 H (9-16) mg/dL Creatinine 0.76 (0.5-1.4) mg/dL Estim Creat Clear Calc 107.9 Estimated GFR > 60 Random Glucose 149 H (60-115) mg/dL Calcium 8.9 D (8.4-10.2) mg/dL Total Bilirubin 0.5 (0.0-1.0) mg/dL AST 14 (5-31) U/L ALT 20 (0-31) U/L Alkaline Phosphatase 63 (39-117) U/L Total Protein 7.6 (6.5-8.0) g/dL Albumin 4.0 (3.5-5.0) g/dL Lipase 16 (8-78) U/L Urine Color Yellow Urine Appearance Clear Urine pH 5.5 (5.0-9.0) Ur Specific [place] >= 1.030 H (1.005-1.025) Urine Protein Trace (Neg-Trace) mg/dL Urine Glucose (UA) Negative (Negative) mg/dL Urine Ketones 15 (Negative) mg/dL Urine Blood Negative (Negative) Urine Nitrite Negative (Negative) Ur Leukocyte Esterase Negative (Negative) COVID-19 ([facility]) Negative (Negative) COVID-19 Clin Com See Note Influenza Type A (JACOB) Negative (Negative) Influenza Type B (JACOB) Negative (Negative) Influenza A & B Note See Note Critical Care Time Critical Care Time Critical Care Time: Yes Total Critical Care Time: 45 Attestation: I have personally provided critical care time. Time includes review of lab data, radiology results, discussion with consultants, and monitoring for potential decompensation. Intervention performed as documented. Discharge Plan Discharge Clinical Impression: Nausea vomiting and diarrhea Patient Disposition: Home, Self-Care Instructions: Acute Nausea and Vomiting (ED), Acute Diarrhea (ED) Additional Instructions: Please follow-up with your primary care physician tomorrow. If you have any worsening or new symptoms, please return to the emergency room or call 911 Prescriptions: New ondansetron 4 mg tablet,disintegrating 4 mg PO Q6H PRN (Reason: nausea and vomiting) Qty: 14 0RF loperamide 2 mg capsule 2 mg PO Q4H PRN (Reason: loose stool) Qty: 20 0RF Rx Instructions: administer after each loose stool until symptoms controlled; do not exceed 8 mg per 24 hrs No Action desog-e.estradiol/e.estradiol [Kariva (28)] 0.15-0.02 mgx21 /0.01 mg x 5 tablet 1 tab PO DAILY Qty: 84 3RF Rx Instructions: Skip placebo pills and start new pack ketorolac 10 mg tablet 10 mg PO TID PRN (Reason: pain) 5 Days Qty: 15 0RF Stand Alone Forms: Work/School Release
[2023-05-17] MEDS: 0.9 % Sodium Chloride 1,000 ML 999 ML IVCONT ×2 (04:39→06:12)
[2023-05-17] MEDS: Loperamide HCl 2 MG CAPSULE 4 MG PO (04:39)
[2023-05-17] MEDS: ondansetron HCL 4 MG/2 ML VIAL IVPUSH (04:39)
--- NOTE | 2023-05-17 05:41 | PC.NURSE ---
Pt ambulatory to restroom to provide urine sample.
[2023-05-17 05:58] VITALS: BP 98/63; PULSE 84; RESP 17; O2SAT 98
[2023-05-17 06:07] LABS: Appearance Urine Clear; Color Urine Yellow; Glucose Urine UA Negative (Negative); Leukocyte Esterase Urine Negative (Negative); Nitrite Urine Negative (Negative); PH 5.5 (5.0-9.0); Specific Gravity - Urine >= 1.030 (1.005-1.025); Urine Blood Negative (Negative); Urine Ketones 15 mg/dL (Negative); Urine Protein Trace mg/dL (Neg-Trace)
== END 2023-05-17 07:03 | disposition home or self-care (01) ==
PROVIDERS: Emergency Provider Emergency Medicine; PCP Physician Assistant Medical
DX: R11.2 Nausea with vomiting, unspecified (principal); R19.7 Diarrhea, unspecified; Z11.52 Encounter for screening for COVID-19
CPT/HCPCS: 80053; 81003; 83690; 85025; 87502; 87635; 93005; 96361; 96374; 99284; 99285; J2405

== ENCOUNTER → 2023-05-16 23:12 | Outpatient (BNV) | payer OTHER, SELFPAY | PROVIDERS: Emergency Provider Emergency Medicine; PCP Physician Assistant Medical; Visit Provider Internal Medicine | DX: R11.0 Nausea (principal) | CPT/HCPCS: 93010 ==

== ENCOUNTER 2023-11-22 15:04 | Outpatient (REF) | payer OTHER, SELFPAY ==
[2023-11-24 07:18] LABS: CT PCR NOT DETECTED (Not Detect.); NG PCR NOT DETECTED (Not Detect.)
[2023-11-24 11:20] LABS: Bacterial Vaginosis PCR NEGATIVE (Negative); Candida Group PCR NOT DETECTED (Not Detect); Candida glab krusei PCR NOT DETECTED (Not Detect); Trichomonas vaginalis PCR NOT DETECTED (Not Detect)
== END 2023-11-22 15:05 | disposition home or self-care (01) ==
LOC: HO.LNP 15:04
PROVIDERS: PCP Physician Assistant Medical; Visit Provider Obstetrics & Gynecology
DX: N76.0 Acute vaginitis (principal); B96.89 Other specified bacterial agents as the cause of diseases classified elsewhere
CPT/HCPCS: 0352U; 87491; 87591

== ENCOUNTER 2023-11-22 15:04 | Outpatient (AMB) | payer OTHER, SELFPAY ==
[2023-11-22 15:06] VITALS: BP 126/84; BMI 38.9
--- NOTE | 2023-11-22 15:06 | A.OFFVIS_ITS ---
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 Complaining of amenorrhea after 3 years of continuous control pills the patient discontinued her control pills and since then has been having no menstrual cycle with no associated nipple discharge and or hair growth, in addition the patient is complaining of vulvovaginal discharge associated with malodor Last Pap was negative in 07/22 [facility] Surgical History Hx of wisdom tooth extraction Family History Father Skin cancer HTN (hypertension) Paternal Grandmother Skin cancer Heart attack Mother HTN (hypertension) Paternal Grandfather Stroke Maternal Grandfather Stroke Social History Household Members: None Housing: Apartment Alcohol intake: never Current occupational status: employed 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 Sexually active: No Sexual orientation: Straight/Heterosexual Gender identity: Female Female Reproductive History Menstrual Total pregnancies: 0 Date of last pap smear: 07/21/22 Review of Systems Const All systems reviewed & are unremarkable except as noted in HPI and below Card Reports as per HPI Resp Reports as per HPI GI Reports as per HPI and Reports no additional complaints Reports as per HPI Physical Exam Vital Signs: Last Vital Signs BP 126/84 11/22/23 15:06 BMI result Body Mass Index 38.9 Const General: cooperative, healthy appearing and comfortable Chest Chest palpation & inspection: normal inspection of the chest and normal palpation of entire chest wall Breast/axilla inspection: normal inspection of the breasts and normal inspection of the axillae Breast/axilla palpation: normal palpation of the breasts, normal palpation of the axillae and no axillary lymphadenopathy Resp Effort & Inspection: normal respiratory effort Auscultation: clear to auscultation bilaterally Percussion: percussion normal Cardio Palpation: normal PMI Rate: regular rate Rhythm: regular rhythm Heart sounds: no murmurs and no rubs Peripheral pulses: Peripheral pulses 2+ throughout GI Inspection: Yes normal to inspection Palpation (GI): Soft to palpation, nontender, no guarding, not rigid and No hepatosplenomegaly present Percussion: Yes normal to percussion Auscultation: normal bowel sounds Rectal Exam - Female: deferred General: Yes bladder normal to palpation External Female Exam: No lesion Speculum Exam - Vagina: normal appearance of the vagina, normal palpation, normal vaginal discharge and not erythematous Speculum Exam - Cervix: normal appearance of the cervix and normal palpation Bimanual exam- vagina & uterus: normal bimanual exam, normal palpation, uterine size normal, bladder normal to palpation, consistency normal and normal palpation Bimanual Exam- Adnexa, other: normal adnexae, no masses and no tenderness Assessment & Plan Assessment & Plan (1) Well woman exam: Code(s): Z01.419 - Encounter for gynecological examination (general) (routine) without abnormal findings Category: Medical Plan: Cotesting not indicated this year. Counseled the patient about the recommended dietary allowance of 1000 mg of Calcium & 600 IU of vitamin D. The patient was instructed to perform monthly self-breast exams and to schedule an annual exam in a year; All questions answered and the patient verbalized understanding. Instructed the patient to schedule annual exam in a year (2) Bacterial vaginosis: Code(s): N76.0 - Acute vaginitis; B96.89 - Other specified bacterial agents as the cause of diseases classified elsewhere Category: Medical Plan: GC and chlamydia cultures with BV panel taken. Per CDC recommendation, will screen for STI, HepBs Ag, HIV, RPR, Hep C Ab ordered. Will treat with Flagyl 500 mg p.o. b.i.d. x 7 days, Instructions given to the patient to refrain from sexual activity or to use condoms consistently and correctly during the BV treatment regimen, not to douch, it might increase the risk for relapse, and to call if symptoms persist or recur. (3) Amenorrhea: Code(s): N91.2 - Amenorrhea, unspecified Category: Medical Plan: UPT done in the office was negative. Discussed with the patient the possible causes of amenorrhea including but not limited to anovulation, thyroid and prolactin disorders, , end organ problems (uterine synechiae), medication side effects and others. The workup includes to start with UPT, negative, this will be followed by a progesterone withdrawal test x 5 days if + bleeding this will be followed by TSH, PRL if negative then the diagnosis is anovulation. if no bleeding occurs will treat with Premarin x 21 days followed by Provera if no bleeding occurs will rule out Premature ovarian failure with F SH/LH. Provera 10 mg p.o. q.d. for 5 days was sent to the patient's pharmacy. Instructions given the patient to schedule a 2 week follow-up appointment. Orders: Orders Hepatitis B Surface Antigen Today B96.89 - Other specified bacterial agents as the cause of diseases classified elsewhere, N76.0 - Acute vaginitis Syphilis Screen Today B96.89 - Other specified bacterial agents as the cause of diseases classified elsewhere, N76.0 - Acute vaginitis HIV Ab/Ag Today B96.89 - Other specified bacterial agents as the cause of diseases classified elsewhere, N76.0 - Acute vaginitis Hepatitis C Antibody Today B96.89 - Other specified bacterial agents as the cause of diseases classified elsewhere, N76.0 - Acute vaginitis Medications: New metronidazole 500 mg PO BID 7 days 14 tabs 0RF medroxyprogesterone (Provera) 10 mg PO daily 5 days 5 tabs 0RF Discontinued desog-e.estradiol/e.estradiol 0.15-0.02 mgx21 /0.01 mg x 5 ([place] (28)) Skip placebo pills and start new pack Discontinued Reason: No Longer Medically Relevant 1 tab PO DAILY 84 tabs 0RF Coding Level of Care Code Est Pt Prev Care 40-64y(91479) Diagnoses Well woman exam Z01.419 Bacterial vaginosis N76.0; B96.89 Amenorrhea N91.2
== END 2023-11-22 15:41 | disposition home or self-care (01) ==
LOC: HO.HWS 15:04
PROVIDERS: PCP Physician Assistant Medical; Visit Provider Obstetrics & Gynecology
DX: Z01.419 Encounter for gynecological examination (general) (routine) without abnormal findings (principal); N76.0 Acute vaginitis; B96.89 Other specified bacterial agents as the cause of diseases classified elsewhere; N91.2 Amenorrhea, unspecified
CPT/HCPCS: 99395

== ENCOUNTER 2023-12-08 11:06 | Outpatient (AMB) | payer OTHER, SELFPAY ==
[2023-12-08 11:16] VITALS: BMI 38.7
--- NOTE | 2023-12-08 11:16 | MHC.OFFVIS ---
Vital Signs 12/08/23 11:16 Height 5 ft 1 in Weight 205 lb 0.478 oz BMI 38.7 Intake Visit Reasons: 2 weeks Menses follow up Allergies cefaclor [From Ceclor] Allergy (Unknown, Verified 11/22/23 15:12) Unknown HPI Comments Details: Presenting 2 weeks follow-up post progesterone withdrawal test. The patient to progesterone 10 mg p.o. q.d. for 5 days and no bleeding. But developed migraine headaches for 4 days after the last Provera. 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 q.d. for 29 days with concordant Provera for the last 10 days. If positive withdrawal test will order TSH and prolactin if negative progesterone withdrawal test and FSH LH. The patient would like to prevent another episode of headache stimulated by progesterone withdrawal. Will order FSH LH was TSH prolactin hCG. Instructions given to the patient to schedule a 2 week follow-up appointment. All questions answered, the patient verbalized understanding Orders: Orders Follicle Stimulating Hormone Today N91.2 - Amenorrhea, unspecified Prolactin Today N91.2 - Amenorrhea, unspecified 17 Hydroxyprogesterone Today N91.2 - Amenorrhea, unspecified Lutenizing Hormone Today N91.2 - Amenorrhea, unspecified TSH reflex Free T4 Today N91.2 - Amenorrhea, unspecified HCG Quantitative Today N91.2 - Amenorrhea, unspecified Testosterone, Free/Total Today N91.2 - Amenorrhea, unspecified Coding Level of Care Code Est Pt Level 3 (60247) Diagnoses Amenorrhea N91.2
== END 2023-12-08 11:26 | disposition home or self-care (01) ==
LOC: HO.HWS 11:06
PROVIDERS: PCP Physician Assistant Medical; Visit Provider Obstetrics & Gynecology
DX: N91.2 Amenorrhea, unspecified (principal)
CPT/HCPCS: 99213

== ENCOUNTER 2023-12-08 11:06 | Outpatient (REF) | payer OTHER, SELFPAY ==
[2023-12-08 12:41] LABS: HBsAGNum1 0.28 S/CO (0.00-0.99); HIV AB/AG Nonreactive (Nonreactive); HIV Num 1 0.06 S/CO (0.00-0.99); Hepatitis B Surface Antigen Negative (Negative); ~HepC Num1 0.09 S/CO (0.00-0.79); ~Hepatitis C Antibody Nonreactive (Nonreactive)
[2023-12-08 12:42] LABS: Syphilis Screen Nonreactive (Nonreactive)
[2023-12-08 12:46] LABS: HCG Quantitative < 2 mIU/mL; TSH reflex Free T4 1.54 uIU/mL (0.32-4.0)
[2023-12-09 07:13] LABS: Follicle Stimulating Hormone 10.2 mIU/mL; Prolactin 9.8 ng/mL
[2023-12-14 21:54] LABS: Testosterone, Free 2.1 pg/mL (0.1-6.4); Testosterone, Total 36 ng/dL (2-45)
== END 2023-12-08 11:07 | disposition home or self-care (01) ==
LOC: HO.LAB 11:06
PROVIDERS: PCP Physician Assistant Medical; Visit Provider Obstetrics & Gynecology
DX: N76.0 Acute vaginitis (principal); B96.89 Other specified bacterial agents as the cause of diseases classified elsewhere; N91.2 Amenorrhea, unspecified
CPT/HCPCS: 36415; 83001; 83002; 83498; 84146; 84402; 84403; 84443; 84702; 86780; 86803; 87340; 87389

== ENCOUNTER 2023-12-28 15:04 | Outpatient (AMB) | payer OTHER, SELFPAY ==
--- NOTE | 2023-12-28 15:09 | MHC.OFFVIS ---
Vital Signs 12/28/23 15:10 Height 5 ft 1 in Weight 205 lb 0.478 oz BMI 38.7 Intake Visit Reasons: 2 weeks labs follow up per Allergies cefaclor [From Ceclor] Allergy (Unknown, Verified 11/22/23 15:12) Unknown HPI Comments Details: Presenting for follow-up regarding amenorrhea. 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 Gender identity: Female Review of Systems Const All systems reviewed & are unremarkable except as noted in HPI and below Reports as per HPI and Reports no additional complaints GI Reports no additional complaints Reports no additional complaints Physical Exam Vital Signs: BMI result Body Mass Index 38.7 Assessment & Plan Assessment & Plan (1) Amenorrhea: Comment: Secondary to long-term use of control pills Code(s): N91.2 - Amenorrhea, unspecified Category: Medical Plan: Discussed with the patient the results of FSH LH, TSH, prolactin hCG and androgen levels, the diagnosis of amenorrhea secondary to long-term use of control pills. Will hold off any treatment. Instructions given the patient to call if amenorrhea persist within 2-3 months or if she develops AUB (2) Family planning: Code(s): Z30.09 - Encounter for other general counseling and advice on contraception Category: Social Hx Plan: Discussed with the patient the different options of control including control pills/Nuvaring, DMPA, different types of IUD ?s, sterilization. All the pros, cons, risks and benefits of each were discussed with the patient. The patient decided to go ahead with an IUD, so a more detailed discussion was carried on including types (Progesterone, Copper), mechanism of action, risks (infection, uterine perforation, failure with ectopic , septic AB, dysmenorrhea with Paraguard, others) benefits (efficient contraceptive method, hypo menorrhea with Progesterone IUD, others) GC/CG will be taken and the patient was asked to call day one of next cycle for IUD insertion. Coding Level of Care Code Est Pt Level 3 (37589) Diagnoses Amenorrhea N91.2 Family planning Z30.09
[2023-12-28 15:10] VITALS: BMI 38.7
== END 2023-12-28 16:11 | disposition home or self-care (01) ==
PROVIDERS: PCP Physician Assistant Medical; Visit Provider Obstetrics & Gynecology
DX: N91.2 Amenorrhea, unspecified (principal); Z30.09 Encounter for other general counseling and advice on contraception
CPT/HCPCS: 99213

== ENCOUNTER → 2023-12-28 15:04 | Outpatient (BNVA) | payer OTHER, SELFPAY | PROVIDERS: PCP Physician Assistant Medical; Visit Provider Obstetrics & Gynecology ==

== ENCOUNTER 2024-01-12 15:14 | Outpatient (AMB) | payer OTHER, SELFPAY ==
--- NOTE | 2024-01-12 15:28 | A.OFFVIS_ITS ---
Vital Signs 01/12/24 15:38 Height 5 ft 1 in Weight 205 lb 0.478 oz BMI 38.7 Intake Visit Reasons: Paragard insertion Special Effects Technician Required: No Information Interpreted: non-clinical & clinical Inspector Wire Products: Inspector Wire Products Present (Mini VENTURA) Accompanied by: Self / Same As Patient Allergies cefaclor [From Ceclor] Allergy (Unknown, Verified 01/12/24 15:39) Unknown Is last menstrual period known: Yes Last menstrual period: 12/28/23 HPI Comments Details: Presenting for ParaGard IUD insertion [facility] Medical History Migraine with aura Surgical History Hx of wisdom tooth extraction Family History Father Skin cancer HTN (hypertension) Paternal Grandmother Skin cancer Heart attack Mother HTN (hypertension) Paternal Grandfather Stroke Maternal Grandfather Stroke Social History Household Members: None Housing: Apartment Alcohol intake: never Current occupational status: employed 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 Her last menstrual period was within the last 5 days, Urine test was done in the office and was negative; All the contraindications were excluded. The following possible complications were discussed with the patient: Intrauterine , Ectopic , Sepsis, Pelvic Infection, Irregular Bleeding, Perforation, Expulsion. The possible adverse effects were discussed with the patient including but not limited to: increased uterine bleeding, dysmenorrhea , others Alternative options were discussed with the patient including but not limited: control pills, patch, NuvaRing, Depo-medroxyprogesterone acetate, Nexplanon, copper IUD, sterilization, vasectomy, others The procedure was explained in detail to patient , at the end patient signed the informed consent obtained. Urine test was done in the office and was negative A no touch technique was used throughout the procedure. A speculum was placed into vagina and cervix was cleaned with betadine). A tenaculum was placed. A plastic sound was advanced through the external and internal os until it reached the fundus of the uterus, the depth was 7 cm. The sound was then withdrawn. The ParaGard IUD was loaded in a sterile manner and advanced into position. The string was visualized and cut to 3 cm. Tenaculum site hemostatic. All instruments removed from vagina. Patient tolerated the procedure well. NO complications were noted. Patient was instructed to call for fever over 100.4, significant pain unrelieved by Motrin, IUD expulsion, heavy bleeding, or abnormal discharge. In addition, the following clinical considerations were discussed with the patient to call for removal: Unexplained fever , or suspected , Pelvic pain or pain during sex ,HIV positive seroconversion in herself or her partner , Possible exposure to sexually transmitted infections Unusual vaginal discharge or genital sores , severe vaginal bleeding or bleeding that lasts a long time, or if she misses a menstrual period, Inability to feel IUD s threads Counseled the patient that the IUD does not protect against STI's, recommended use of condoms for the first 7 days post insertion and explained to the patient that condoms are recommended for patients at risk for sexually transmitted infections. Follow up appointment made for 6 weeks following insertion. This note was generated with a voice recognition program. Some errors may have been overlooked during the review of this note. Sometimes these errors may affect the content or meaning of a given sentence. [id number] Insertion Procedure code (CPT) selection complete Office Meds ParaGard T 380A 380 square mm intrauterine device Performing Provider: Yonny Rodrigues MD Performing Location: [facility] Documented (not given) by: Yonny Rodrigues MD on 01/12/24 15:49 Dose Route Admin Location Dispensed Lot Number Expiration Date [facility] Power Sewing Machine Operator 1 device intrauterine ea Results AMB Test Urine AMB Test Urine Negative Last Edit by Mini Gay CMA on 15:41 Assessment & Plan Assessment & Plan (1) Encounter for insertion of ParaGard IUD: Code(s): Z30.430 - Encounter for insertion of intrauterine contraceptive device Category: Medical Plan: ParaGard IUD inserted, see procedure Orders: Orders AMB IUD Insertion/Removal - Practice Supplied Today Z30.430 - Encounter for insertion of intrauterine contraceptive device AMB HCG Urine Test Today Z32.02 - Encounter for test, result negative Medications: New ParaGard T 380A (copper) 1 device intrauterine ONCE 1 ea 0RF IUD insertion NS Z30.430 - Encounter for insertion of intrauterine contraceptive device Coding Level of Care Code Procedure Only Diagnoses Encounter for insertion of ParaGard IUD Z30.430 CPT Codes Details - CPT: 11692-OKJ Insertion ([id number])
[2024-01-12 15:38] VITALS: BMI 38.7
== END 2024-01-12 15:50 | disposition home or self-care (01) ==
PROVIDERS: PCP Physician Assistant Medical; Visit Provider Obstetrics & Gynecology
DX: Z30.430 Encounter for insertion of intrauterine contraceptive device (principal); Z32.02 Encounter for pregnancy test, result negative
CPT/HCPCS: 58300

== ENCOUNTER → 2024-01-12 15:14 | Outpatient (BNVA) | payer OTHER, SELFPAY | PROVIDERS: PCP Physician Assistant Medical; Visit Provider Obstetrics & Gynecology | DX: Z30.430 Encounter for insertion of intrauterine contraceptive device (principal) | CPT/HCPCS: 58300; 81025; J7300 ==

== ENCOUNTER 2024-03-05 14:45 | Outpatient (AMB) | payer OTHER, SELFPAY ==
--- NOTE | 2024-03-05 14:46 | MHC.OFFVIS ---
Vital Signs 03/05/24 14:47 Height 5 ft 1 in Weight 205 lb BMI 38.7 Intake Visit Reasons: IUD Check Allergies cefaclor [From Ceclor] Allergy (Unknown, Verified 03/05/24 14:47) Unknown HPI Comments Details: The patient is presenting for IUD check after 1 st period following IUD insertion. The patient has no complaints periods are heavier and prolonged, not painful, and flow is heavier than the usual. 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: Straight/Heterosexual Gender identity: Female Review of Systems Const All systems reviewed & are unremarkable except as noted in HPI and below Physical Exam Vital Signs: BMI result Body Mass Index 38.7 General: Yes no CVA tenderness External Female Exam: normal external appearance and normal appearance of the urethra Speculum Exam - Vagina: normal appearance of the vagina, normal palpation, no lesions and no masses Speculum Exam - Cervix: normal appearance of the cervix, normal palpation, no lesions, no masses, nontender and Other cervical findings present (IUD string in place) Bimanual exam- vagina & uterus: normal bimanual exam, normal palpation, uterine size normal, normal palpation, uterine shape normal, No Cervical tenderness present and non-tender Bimanual Exam- Adnexa, other: normal adnexae Back/Spine/Pelvis Back: no CVA tenderness Results AMB Test Urine AMB Test Urine Negative Last Edit by Chayo Bethea CMA on 03/05/24 14:55 Results Reviewed Results Reviewed: Laboratory Last Values [facility] Negative 03/05/24 14:47 Assessment & Plan Assessment & Plan (1) IUD check up: Code(s): Z30.431 - Encounter for routine checking of intrauterine contraceptive device Category: Medical Plan: UPT done in the office was negative. Discussed with the patient the finding on physical exam, IUD string in place, the patient was reassured. Instructions given to patient to call in case of temperature above 100.4, severe cramping/pelvic pain, abnormal discharge or abnormal uterine bleeding or if she misses her menstrual cycle. Otherwise follow-up at her annual exam appointment. All questions answered, the patient verbalized understanding. (2) Vaginal discharge: Code(s): N89.8 - Other specified noninflammatory disorders of vagina Category: Medical Plan: GC/BV taken, will check the results and treat accordingly. Orders: Orders AMB HCG Urine Test Today Z32.02 - Encounter for test, result negative Coding Level of Care Code Est Pt Level 3 (71290) Diagnoses IUD check up Z30.431 Vaginal discharge N89.8
[2024-03-05 14:47] VITALS: BMI 38.7
== END 2024-03-05 15:11 | disposition home or self-care (01) ==
LOC: HO.HWS 14:45
PROVIDERS: PCP Physician Assistant Medical; Visit Provider Obstetrics & Gynecology
DX: Z30.431 Encounter for routine checking of intrauterine contraceptive device (principal); N89.8 Other specified noninflammatory disorders of vagina; Z32.02 Encounter for pregnancy test, result negative
CPT/HCPCS: 99213

== ENCOUNTER 2024-03-05 14:45 | Outpatient (REF) | payer OTHER, SELFPAY ==
[2024-03-05 18:30] LABS: Bacterial Vaginosis PCR POSITIVE (Negative); Candida Group PCR DETECTED (Not Detect); Candida glab krusei PCR NOT DETECTED (Not Detect); Trichomonas vaginalis PCR NOT DETECTED (Not Detect)
[2024-03-06 05:36] LABS: CT PCR NOT DETECTED (Not Detect.); NG PCR NOT DETECTED (Not Detect.)
== END 2024-03-05 14:46 | disposition home or self-care (01) ==
LOC: HO.LNP 14:45
PROVIDERS: PCP Physician Assistant Medical; Visit Provider Obstetrics & Gynecology
DX: N98.9 Complication associated with artificial fertilization, unspecified (principal)
CPT/HCPCS: 0352U; 81025; 87491; 87591

== ENCOUNTER 2024-04-04 13:34 | Outpatient (REF) | payer OTHER, SELFPAY ==
[2024-04-04 18:12] LABS: Bacterial Vaginosis PCR NEGATIVE (Negative); Candida Group PCR NOT DETECTED (Not Detect); Candida glab krusei PCR NOT DETECTED (Not Detect); Trichomonas vaginalis PCR NOT DETECTED (Not Detect)
[2024-04-05 06:31] LABS: CT PCR NOT DETECTED (Not Detect.); NG PCR NOT DETECTED (Not Detect.)
== END 2024-04-04 13:35 | disposition home or self-care (01) ==
LOC: HO.LNP 13:34
PROVIDERS: PCP Physician Assistant Medical; Visit Provider Obstetrics & Gynecology
DX: N89.8 Other specified noninflammatory disorders of vagina (principal); T83.9XXA Unspecified complication of genitourinary prosthetic device, implant and graft, initial encounter; R31.29 Other microscopic hematuria; N83.291 Other ovarian cyst, right side; N83.292 Other ovarian cyst, left side
CPT/HCPCS: 0352U; 81025; 87086; 87491; 87591

== ENCOUNTER 2024-04-04 14:08 | Outpatient (AMB) | payer OTHER, SELFPAY ==
--- NOTE | 2024-04-04 13:44 | MHC.OFFVIS ---
Vital Signs 04/04/24 13:47 Height 5 ft 1 in Weight 202 lb 13.204 oz BMI 38.3 BP 122/74 Intake Visit Reasons: IUD removal Drill Bit Sharpener Required: No Information Interpreted: non-clinical & clinical Waist Pleater: Waist Pleater Present (Mini VNETURA) Accompanied by: Self / Same As Patient Allergies cefaclor [From Ceclor] Allergy (Unknown, Verified 04/04/24 13:53) Unknown HPI Comments Details: Presenting complaining of pelvic pain of 2 days' duration no associated fever or chills GI or urinary symptoms. The patient has been having greenish vaginal discharge since IUD insertion GC/CT were done were negative, BV was positive for Izzy and Gardnerella, the patient was treated with Terazol and Flagyl the vaginal discharge with not improve. 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: Straight/Heterosexual Gender identity: Female Review of Systems Const All systems reviewed & are unremarkable except as noted in HPI and below Physical Exam Vital Signs: Last Vital Signs BP 122/74 04/04/24 13:47 BMI result Body Mass Index 38.3 General: Yes no CVA tenderness External Female Exam: normal external appearance and normal appearance of the urethra Speculum Exam - Vagina: normal appearance of the vagina, normal palpation, no lesions and no masses Speculum Exam - Cervix: normal appearance of the cervix, normal palpation, no lesions, no masses and Other cervical findings present (IUD string seen) Bimanual exam- vagina & uterus: normal bimanual exam, normal palpation, uterine size normal, normal palpation, uterine shape normal, no cervical motion tenderness and nontender Bimanual Exam- Adnexa, other: normal adnexae Back/Spine/Pelvis Back: no CVA tenderness Results AMB Test Urine AMB Test Urine Negative Last Edit by Mini Gay CMA on 04/04/24 13:54 Results Reviewed Results Reviewed: Laboratory Last Values [facility] Clinic Negative 04/04/24 13:54 Assessment & Plan Assessment & Plan (1) IUD check up: Code(s): Z30.431 - Encounter for routine checking of intrauterine contraceptive device Category: Medical Plan: Urine test done in the office was negative. IUD by ultrasound seems to be in appropriate position will keep IUD in Situ. Instructions given the patient to call in case of fever above 100.4, pelvic pain or heavy vaginal bleeding (2) Complex cyst of both ovaries: Code(s): N83.291 - Other ovarian cyst, right side; N83.292 - Other ovarian cyst, left side Category: Medical Plan: Discussed with the patient the unofficial finding on ultrasound showing bilateral complex ovarian cyst. Discussed with the patient the Ultrasound findings, the main limitation of transvaginal ultrasonography alone as a diagnostic tool to distinguish benign from malignant masses relates to its lack of specificity and low positive predictive value for cancer. The differential diagnosis discussed with the patient includes the following but not limited to: benign and malignant gynecological and non-gynecological causes. Laboratory evaluation include UPT and GC/CT , serum tumor marker CA 125 . Discussed with the patient options of treatment including laparoscopy ovarian cystectomy/oophorectomy vs. expectant management with repeat US in repeating pelvic US in 6-12 weeks from previous US. If the ovarian complex cyst is persistent larger and / or more complex looking, will refer to gynecologic Oncology. All pros, cons, risks and benefits of each approach were discussed with the patient including but not limited to a delay in the diagnosis and treatment of ovarian cancer affecting the prognosis; The patient decided to go ahead with expectant management. Instructions given the patient to schedule a 3 months follow-up ultrasound appointment. All questions were answered & the patient verbalized understanding and agreed with the plan. (3) Microscopic hematuria: Code(s): R31.29 - Other microscopic hematuria Category: Medical Plan: Urine dip showed microscopic hematuria, urine culture sent. Will repeat urine dip in 2 weeks. Discussed with the patient the possible causes of microscopic hematuria including but not limited to: interstitial cystitis, polyps, stones, masses, urethral inflammatory processes and others. If Urine Culture is negative and repeat urine dip in 2 weeks shows persistent microscopic hematuria, will proceed with CT abdomen/pelvis and urology referral. Instructions given the patient to schedule a 2 week urine dip follow-up appointment. All questions answered and the patient verbalized understanding. Orders: Orders US pelvic and transvaginal Today Z30.431 - Encounter for routine checking of intrauterine contraceptive device Bacterial Vaginosis Panel Today T83.9XXA - Unspecified complication of genitourinary prosthetic device, implant and graft, initial encounter US pelvic and transvaginal 3 Months N83.291 - Other ovarian cyst, right side, N83.292 - Other ovarian cyst, left side AMB HCG Urine Test Today Z32.02 - Encounter for test, result negative CT NG by PCR Today T83.9XXA - Unspecified complication of genitourinary prosthetic device, implant and graft, initial encounter Coding Level of Care Code Est Pt Level 3 (28316) Diagnoses IUD check up Z30.431 Complex cyst of both ovaries N83.291; N83.292 Microscopic hematuria R31.29
[2024-04-04 13:47] VITALS: BP 122/74; BMI 38.3
== END 2024-04-04 15:09 | disposition home or self-care (01) ==
PROVIDERS: PCP Physician Assistant Medical; Visit Provider Obstetrics & Gynecology
DX: Z30.431 Encounter for routine checking of intrauterine contraceptive device (principal); N83.291 Other ovarian cyst, right side; N83.292 Other ovarian cyst, left side; R31.29 Other microscopic hematuria; Z32.02 Encounter for pregnancy test, result negative
CPT/HCPCS: 99213

== ENCOUNTER 2024-04-04 14:34 | Outpatient (REF) | payer OTHER, SELFPAY ==
--- NOTE | ~2024-04-04 | US_ITS ---
EXAMINATION: US PELVIS CLINICAL INFORMATION: IUD check up. Date of LMP, 4 weeks ago. COMPARISON: Pelvic ultrasound of 07/06/2022. Selected images of the abdomen and pelvic CT scan of 07/06/2022. TECHNIQUE: Ultrasound of the pelvis is performed using both transabdominal and transvaginal transducers along with Doppler. Transvaginal imaging is performed due to inadequate visualization transabdominally. FINDINGS: The uterus is anteverted in orientation and normal in size and contour. The uterus measures 7.1 x 2.4 x 3.3 cm in length (from fundus to external cervical os), AP and transverse dimensions respectively. Endometrial stripe thickness is 0.8 cm. An IUD is in place and appears to be in appropriate position. Trace fluid is noted in the endometrial canal. Small nabothian cysts are noted in the cervix. Myometrial echotexture is homogeneous. No focal myometrial mass. The right ovary measures 4.8 x 2.4 x 3.8 cm with a volume of 22.9 mL. There is an irregular-shaped mildly complex-appearing cystic lesion in the ovary with vascularity at the periphery; the lesion measures 2.2 x 2.7 x 2.5 cm. A few additional small subcentimeter simple cysts/follicles are noted in the ovary. The left ovary measures 2.8 x 1.4 x 1.7 cm with a volume of 3.5 mL. Multiple follicles are noted in the left ovary. In the left paraovarian location there is a 4.0 x 3.2 x 4.2 cm largely anechoic cystic lesion with minimally thick wall, corresponding finding does not appear to be well documented on the previous ultrasound images however corresponding finding on the previous CT scan of 07/06/2022 measures 3.8 x 3.3 x 4.4 cm. On current ultrasound cine images note is made of from a 0.4 cm mural nodular components noted along the wall of the cyst (cine series 7 image 92 and 187, cine series 6 image 27). No free fluid. US/US pelvic and transvaginal IMPRESSION: An intrauterine device appears to be in appropriate position. A 2.7 cm right ovarian cystic lesion as described above may or may not represent a collapsing corpus luteal cyst. Recommend follow-up ultrasound in 6-12 weeks. A 4.2 cm minimally thick-walled left paraovarian cystic lesion does not appear to be significantly changed in size compared to previous CT scan of 07/06/2022, however there appears to be small mural nodular components within this cyst as described above. Recommend correlation with the pelvic MRI (without and with contrast). Electronically signed by: Vilma Knott MD 04/05/2024 04:30 PM [facility] [place]
== END 2024-04-04 14:35 | disposition home or self-care (01) ==
LOC: HO.US 14:34
PROVIDERS: PCP Physician Assistant Medical; Visit Provider Obstetrics & Gynecology
DX: Z30.431 Encounter for routine checking of intrauterine contraceptive device (principal)
CPT/HCPCS: 76830; 76856

== ENCOUNTER 2024-04-06 14:12 | Outpatient (AMB) | payer OTHER, SELFPAY ==
--- NOTE | 2024-04-06 14:13 | MHC.OFFVIS ---
Intake Visit Reasons: u/s results Allergies cefaclor [From Ceclor] Allergy (Unknown, Verified 04/04/24 13:53) Unknown HPI Comments Details: The patient is scheduled tele health visit to discuss the results the pelvic ultrasound done on 04/04/2024 which showed the following: IMPRESSION: An intrauterine device appears to be in appropriate position. A 2.7 cm right ovarian cystic lesion as described above may or may not represent a collapsing corpus luteal cyst. Recommend follow-up ultrasound in 6-12 weeks. A 4.2 cm minimally thick-walled left paraovarian cystic lesion does not appear to be significantly changed in size compared to previous CT scan of 07/06/2022, however there appears to be small mural nodular components within this cyst as described above. Recommend correlation with the pelvic MRI (without and with contrast). 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: Straight/Heterosexual Gender identity: Female Review of Systems Const All systems reviewed & are unremarkable except as noted in HPI and below Reports as per HPI and Reports no additional complaints GI Reports no additional complaints Reports no additional complaints Telehealth Telehealth Telehealth Platform: Telephone Location of provider rendering services: practice address Location of patient: address on file Patient Identification confirmed using: Name, : Yes Telehealth method: voice only Patient verbally consented to treatment: Yes Patient verbally consented to billing insurance company: Yes Patient informed of any privacy concerns related to visit: Yes Assessment & Plan Assessment & Plan (1) Complex cyst of both ovaries: Code(s): N83.291 - Other ovarian cyst, right side; N83.292 - Other ovarian cyst, left side Category: Medical Plan: Discussed with the patient the bilateral complex ovarian cyst by Ultrasound. The differential diagnosis discussed with the patient includes the following but not limited to: benign and malignant gynecological and non-gynecological. For ultrasound radiologist recommendation pelvic MRI should be in the next step in the management. Instructions given the patient to schedule a pelvic MRI, ordered and a follow-up appointment. I spent a total of 20 minutes reviewing the chart, talking to the patient via phone and documenting in the medical record. Orders: Orders MR pelvis wo/w con Today N83.299 - Other ovarian cyst, unspecified side Coding Level of Care Code Tele Est Pt Level 3 (29490) Diagnoses Complex cyst of both ovaries N83.291; N83.292
== END 2024-04-06 14:47 | disposition home or self-care (01) ==
LOC: HO.HWS 14:12
PROVIDERS: PCP Physician Assistant Medical; Visit Provider Obstetrics & Gynecology
DX: N83.291 Other ovarian cyst, right side (principal); N83.292 Other ovarian cyst, left side
CPT/HCPCS: 99213

== ENCOUNTER → 2024-04-06 14:12 | Outpatient (BNVA) | payer OTHER, SELFPAY | PROVIDERS: PCP Physician Assistant Medical; Visit Provider Obstetrics & Gynecology ==

== ENCOUNTER 2024-05-07 15:29 | Outpatient (REF) | payer OTHER, SELFPAY ==
[2024-05-07 16:17] LABS: Appearance Urine Clear; Color Urine Yellow; Glucose Urine UA Negative (Negative); Leukocyte Esterase Urine Negative (Negative); Nitrite Urine Negative (Negative); PH 6.5 (5.0-9.0); Specific Gravity - Urine >= 1.030 (1.005-1.025); Urine Blood Negative (Negative); Urine Ketones Negative (Negative); Urine Protein Negative (Neg-Trace)
[2024-05-07 16:22] LABS: Bacteria Urine None Seen (None Seen); Hyaline Casts Urine 0-2 /LPF (0-2); RBC Urine 0-2 /HPF (0-2); Squamous Epithelial Cell Urine 0-2 /HPF (0-2); WBC Urine 0-5 /HPF (0-5)
== END 2024-05-07 15:30 | disposition home or self-care (01) ==
LOC: HO.LAB 15:29
PROVIDERS: PCP Physician Assistant Medical; Visit Provider Obstetrics & Gynecology
DX: R31.29 Other microscopic hematuria (principal)
CPT/HCPCS: 81001

== ENCOUNTER 2024-05-09 11:49 | Outpatient (AMB) | payer OTHER, SELFPAY ==
--- NOTE | 2024-05-09 11:49 | A.OFFVIS_ITS ---
Intake Visit Reasons: MRI results/urine dip Allergies cefaclor [From Ceclor] Allergy (Unknown, Verified 04/04/24 13:53) Unknown HPI Comments Details: The patient is scheduled a telehealth visit for pelvic MRI follow-up. The patient had pelvic ultrasound in 04/04/2024 which showed bilateral complex ovarian cyst, pelvic MRI followed which showed the following: Unremarkable appearance of the uterus, endometrium and ovaries Suspect left paraovarian unilocular ovarian cyst . No enhancing nodule or any other aggressive features. 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/Heterosexual Gender identity: Female Review of Systems Const All systems reviewed & are unremarkable except as noted in HPI and below Reports as per HPI and Reports no additional complaints GI Reports no additional complaints Reports no additional complaints Telehealth Telehealth Telehealth Platform: Telephone Location of provider rendering services: practice address Location of patient: address on file Patient Identification confirmed using: Name, : Yes Telehealth method: video Patient verbally consented to treatment: Yes Patient verbally consented to billing insurance company: Yes Patient informed of any privacy concerns related to visit: Yes Assessment & Plan Assessment & Plan (1) Complex cyst of both ovaries: Code(s): N83.291 - Other ovarian cyst, right side; N83.292 - Other ovarian cyst, left side Category: Medical Plan: Discussed with the patient the results of the MRI, recommended follow-up six- month pelvic ultrasound. All questions answered, the patient verbalized understanding. I spent a total of 20 minutes reviewing the chart, talking to the patient via video and documenting in the medical record. Orders: Orders US pelvic and transvaginal 6 Months Q50.5 - Embryonic cyst of broad ligament Coding Level of Care Code Tele Est Pt Level 3 (75769) Diagnoses Complex cyst of both ovaries N83.291; N83.292
== END 2024-05-09 12:16 | disposition home or self-care (01) ==
LOC: HO.HWS 11:49
PROVIDERS: PCP Physician Assistant Medical; Visit Provider Obstetrics & Gynecology
DX: N83.291 Other ovarian cyst, right side (principal); N83.292 Other ovarian cyst, left side
CPT/HCPCS: 99213

== ENCOUNTER → 2024-05-09 11:49 | Outpatient (BNVA) | payer OTHER, SELFPAY | PROVIDERS: PCP Physician Assistant Medical; Visit Provider Obstetrics & Gynecology ==

== ENCOUNTER 2024-06-19 14:35 | Outpatient (REF) | payer OTHER, SELFPAY ==
--- OUTSIDE RECORDS SUMMARY | 2024-06-19 16:01 | XMS_ITS | Referral Summary ---
Author Organization [facility] Address [address] [place] [address] Care Team Providers Care Marketing Writer Name Role Phone Etienne Jerome Primary Care Provider [phone] Allergies Active Allergy Reactions Criticality Noted Date [...] Not on file Insurance [facility] Care Teams Marketing Writer Relationship Specialty Start Date End Date Etienne Jerome PCP - General Internal Medicine 09/21/23
--- OUTSIDE RECORDS SUMMARY | 2024-06-19 16:02 | XMS_ITS | Clinical Summary ---
Author Organization [facility] Address [address] [place] [address] Phone Care Team Providers Care Cold Roll Inspector Name Role Phone Etienne Jerome Primary Care Provider [phone] Allergies Active Allergy Reactions Criticality Noted Date [...] eservative (Fluzone; Afluria) 6mo and older 02/24/2016 Wattpad SARS-CoV-2 COVID-19, mRNA, LNP-S, preservative free 08/02/2020,07/12/2020 [...] resultswithin the time period is included. Provider [facility] LAB BLOOD ORDERABLES Fin al Result * External Ultrasound Report (04/05/2024) Anatomical Region Laterality Modality Ultrasound Provider [facility] IMG US PROCEDURES Final Result * HIV Screening (08/04/2023) [facility] HIV Screening Abstracted Result [facility] Historical Provider HEALTH MAINTENANCE Final Result * (ABNORMAL) Lipid panel (04/22/2023) [facility] LDL/HDL Ratio 3 0 - 4 Triglycerides 169(A) 0 - 150 mg/dL Cholesterol 207(A) 0 - 200 mg/dL HDL 68 >=40 mg/dL LDL Cholesterol 106(A) 0 - 100 mg/dL Blood Venous blood specimen / Unknown Result [facility] Provider LAB BLOOD ORDERABLES Clarisse l Result * Hepatitis C Screening (10/16/2020) [facility] Hepatitis C Screening Abstracted Result [facility] Provider HEALTH MAINTENANCE Final Result * Cervical Cancer Screening: HPV (07/06/2019) [facility] Cervical Cancer Screening: HPV Abstracted ,negative Result [facility] Historical Provider HEALTH MAINTENANCE Final Result from Last 3 Months or Most Recently Relevant to Health Maintenance [place] [address] [place] [address] Care Teams Cold Roll Inspector Relationship Specialty Start Date End Date Etienne Jerome PA [address] [place] [address] PCP - General Internal Medicine 03/12/20
--- OUTSIDE RECORDS SUMMARY | 2024-06-19 16:02 | XMS_ITS | Clinical Summary ---
Author Organization [facility] Address [address] [place] [address] Care Team Providers Care Creative Lead Name Role Phone Etienne Jerome Primary Care Provider [phone] Allergies Active Allergy Reactions Criticality Noted Date [...] patient's age to complete this topic Insurance [facility] Care Teams Creative Lead Relationship Specialty Start Date End Date Etienne Jerome PCP - General Internal Medicine 09/21/23
[2024-06-20 17:15] LABS: Bacterial Vaginosis PCR NEGATIVE (Negative); Candida Group PCR NOT DETECTED (Not Detect); Candida glab krusei PCR NOT DETECTED (Not Detect); Trichomonas vaginalis PCR NOT DETECTED (Not Detect)
[2024-06-20 17:47] LABS: CT PCR NOT DETECTED (Not Detect.); NG PCR NOT DETECTED (Not Detect.)
== END 2024-06-19 14:36 | disposition home or self-care (01) ==
LOC: HO.LNP 14:35
PROVIDERS: PCP Physician Assistant Medical; Visit Provider Advanced Practice Midwife
DX: N76.0 Acute vaginitis (principal); B96.89 Other specified bacterial agents as the cause of diseases classified elsewhere; Z20.2 Contact with and (suspected) exposure to infections with a predominantly sexual mode of transmission
CPT/HCPCS: 81515; 87491; 87591

== ENCOUNTER 2024-06-19 14:35 | Outpatient (AMB) | payer OTHER, SELFPAY ==
--- NOTE | 2024-06-19 14:41 | A.OFFVIS_ITS ---
Intake Visit Reasons: STD test Regional Sales Engineer: Regional Sales Engineer Present (Stephanie) Accompanied by: Self / Same As Patient Allergies cefaclor [From Ceclor] Allergy (Unknown, Verified 06/19/24 14:41) Unknown HPI Comments Details: Patient is here today for STD cervical cultures to be done. She has a new partner and wants to be tested and has requested himself to be tested. She does not have any symptoms of pelvic cane, discharge or odors. She is happy with her ParaGard use and has regular cycles. She denies any other concerns. 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 Sexual orientation: Straight/Heterosexual Gender identity: Female Review of Systems Const All systems reviewed & are unremarkable except as noted in HPI and below Physical Exam Const General: cooperative, healthy appearing and no acute distress Orientation/consciousness: patient oriented x3 GI Inspection: Yes normal to inspection Palpation (GI): Soft to palpation and Other GI palpation findings present (Nontender) Rectal Exam - Female: visual inspection normal General: Yes bladder normal to palpation External Female Exam: normal appearance of the urethra Speculum Exam - Vagina: normal appearance of the vagina, normal palpation and normal vaginal discharge Speculum Exam - Cervix: normal appearance of the cervix, normal palpation and Other cervical findings present (IUD strings at the os) Bimanual exam- vagina & uterus: normal bimanual exam, normal palpation, uterine size normal, bladder normal to palpation, normal palpation, uterine shape normal and non-tender Bimanual Exam- Adnexa, other: normal adnexae Neuro General: patient oriented x3 Assessment & Plan Assessment & Plan (1) Possible exposure to STD: Code(s): Z20.2 - Contact with and (suspected) exposure to infections with a predominantly sexual mode of transmission Plan Discussed: Previous GC x2 in March and April were negative, bled work in November was negative. She declines to have blood work repleted. Await results for GC chlamydia and BV panel, obtained today. The patient expressed understanding and agreement with the plan of care. All of her questions and concerns were addressed to the best of my ability. Safe sex, condom use. Annual exam scheduled. This note is constructed using voice recognition software. While every effort has been made to ensure accuracy, machine slat basket maker errors may have been included. Coding Level of Care Code Est Pt Level 3 (32381) Diagnoses Possible exposure to STD Z20.2
--- OUTSIDE RECORDS SUMMARY | 2024-06-19 15:34 | XMS_ITS | Referral Summary ---
Author Organization [facility] Address [address] [place] [address] Care Team Providers Care Petroleum Products Sales Representative Name Role Phone Etienne Jerome Primary Care Provider [phone] Allergies Active Allergy Reactions Criticality Noted Date Comments Cefaclor Rash 11/09/2023 Medications sertraline (ZOLOFT) 100 mg tablet SMARTSI Tablet(s) By Mouth Every Morning 10/19/2023 Active desog-e.estradi ol/e.estradiol (KARIVA, 28, ORAL) Active Active Problems Problem Noted Date Diagnosed Date Obesity (BMI 35.0-39.9 without comorbidity) 10/30 Ovarian cyst 10/17/2023 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 Daytime sleepiness 08/03/2023 OCD (obsessive compulsive disorder) 11/07/2022 Bilateral ovarian cysts 06/10/2022 Anxiety 11/04/2015 Social History Tobacco Use Types Packs/Day Years Used Date Smoking Tobacco: Never Smokeless Tobacco: Never Tobacco Cessation:Counseling Given: Not Answered Comments Unknown Sex and Gender Information Value Date Recorded Sex Assigned at Female 09/21/2023 9:27 AM EDT Legal Sex Female 9:23 AM EDT Gender Identity Female 09/21/2023 1:39 PM EDT Sexual Orientation Straight 09/21/2023 1: 39 PM EDT Last Filed Vital Signs Vital Sign Reading Time Taken Comments Blood Pressure 119/86 11/09/2023 4:09 PM EDT Pulse 96 11/09/2023 4:09 PM EDT Temperature - - Respiratory Rate - - Oxygen Saturation - - Inhaled Oxygen Concentration - - Weight 93.9 kg (207 lb) 11/09/2023 3:26 PM EDT Height 157.5 cm (5' 2 ) 11/09/2023 3:26 PM EDT Body Mass Index 37.86 11/09/2023 3:26 PM EDT Plan of Treatment Not on file Insurance [facility] Care Teams Petroleum Products Sales Representative Relationship Specialty Start Date End Date Etienne Jerome PCP - General Internal Medicine 09/21/23
--- OUTSIDE RECORDS SUMMARY | 2024-06-19 15:34 | XMS_ITS | Clinical Summary ---
Author Organization [facility] Address [address] [place] [address] Care Team Providers Care Graduate Teaching Associate Name Role Phone Etienne Jerome Primary Care Provider [phone] Allergies Active Allergy Reactions Criticality Noted Date [...] 11/07/2022 Bilateral ovarian cysts 06/10/2022 Anxiety 11/04/2015 Family History Medical History Relation Name Comments Thyroid disease Maternal Grandmother uncl ear Relation Name Status Comments Maternal Grandmother Mother Alive Social History Tobacco Use Types Packs/Day Years Used Date Smoking Tobacco: Never Smokeless Tobacco: Never Tobacco Cessation:Counseling Given: Not Answered Comments Unknown Sex and Gender Information Value Date Recorded Sex Assigned at Female 09/21/2023 9:27 AM EDT Legal Sex Female 9:23 AM EDT Gender Identity Female 09/21/2023 1:39 PM EDT Sexual Orientation Straight 09/21/2023 1 :39 PM EDT Last Filed Vital Signs Vital [...] 11/09/2023 3:26 PM EDT Plan of Treatment Health Maintenance Due Date Last Done Comments Cervical Cancer Screening 1992 HIV Screening 1992 HPV and Pap Smear 1992 Hepatitis C Screening 1992 Pap Smear 1992 Varicella Vaccines (1 of 2 - 13+ 2-dose series) 2005 Hepatitis B Vaccines (1 of 3 - 19+ 3-dose series) 10/15/2011 COVID-19 Vaccine ( - 2023-2 5 season) 2024 08/02/2020, 07/12/2020 Influenza Vaccine (#1) 2024 9, 02/24/2016 Alcohol/Substance Use Screening 05/02/2024 Depression Screening and Follow-Up 05/02/2024 Social Drivers of Health Annual Screening 05/02/2024 DTaP,Tdap,and Td Vaccines (2 - Td or Tdap) 08/02/2033 08/03/2023 RSV Vaccine (60+ years old and patients) (1 - 1-dose 75+ series) 10/15/2067 Pneumococcal Vaccine: Pediatric (0-5 Years) and At-Risk Patients (6-50 Years) Aged Out No longer eligible based on patient's age to complete this topic Insurance [facility] Care Teams Graduate Teaching Associate Relationship Specialty Start Date End Date Etienne Jerome PCP - General Internal Medicine 09/21/23
--- OUTSIDE RECORDS SUMMARY | 2024-06-19 15:34 | XMS_ITS | Clinical Summary ---
Author Organization [facility] Address [address] [place] [address] Phone Care Team Providers Care Railway Switchman Name Role Phone Etienne Jerome Primary Care Provider [phone] Allergies Active Allergy Reactions Criticality Noted Date Comments Cefaclor Rash 01/08/2013 Nitrofurantoin Macrocrystal 03/12/20 20 rash Medications desogestrel-eth inyl estradiol (RADHA DALE,DORIS ALDRICH EA) 0.15-0.02 mgx21 /0.01 mg x 5 per tablet TAKE 1 TABLET BY MOUTH DAILY. SKIPPING PLACEBO WEEK 04/12/2022 Active hydrOXYzine HCL (ATARAX) 10 mg tablet Take 1 Tablet by mouth 3 times daily as needed for Anxiety. 12/13/2022 Active propranoloL (INDERAL) 10 mg tablet 04/14/2023 Active sertraline (ZOLOFT) 100 mg tablet TAKE ONE AND ONE HALF (1.5) TABLETS BY MOUTH AT BEDTIME 03/19/2023 Active Active Problems Problem Noted Date Diagnosed Date Ovarian cyst 10/17/2023 Daytime sleepiness 08/03/2023 Obsessive-compulsive disorder 08/03/2023 Anxiety 11/04/2015 Immunizations Name Administration Dates Next Due Influenza Quadravalent, MDCK , 0.5ml, preservative free (Flucelvax) 6mo and older 05/16/2018 Influenza trivalent, with pr eservative (Fluzone; Afluria) 6mo and older 02/24/2016 Stitch Fix SARS-CoV-2 COVID-19, mRNA, LNP-S, preservative free 08/02/2020,07/12/2020 Tdap Tetanus diptheria acell ular pertussis (Boostrix; Adacel) 7yo and older 08/03/2023 Surgical History Surgery Date Site/Laterality Comments WISDOM TOOTH EXTRACTION PROCEDURE: HISTORICAL WISDOM TEETH EXTRACTION OTHER SURGICAL HISTORY PROCEDURE: CONTRACEPT IUD; COMMENT: had to be removed Medical History Medical History Date Comments Anxiety 11/04/2015 DX:Anxiety Obsessive-compulsive disorder 08/03/2023 DX :Obsessive-compulsive disorder Daytime sleepiness 08/03/2023 DX:Daytime sl eepiness Family History Medical History Relation Name Comments Other: anxiety Brother Hyperlipidemia Father Hypertension Father Other: skin cancer Father Depression Maternal Grandmother Heart attack Paternal Grandmother multipl e Breast cancer Neg Hx Colon cancer Neg Hx Ovarian cancer Neg Hx Pancreatic cancer Neg Hx Uterine cancer Neg Hx Relation Name Status Comments Brother Alive Father Alive Maternal Grandfather Alive Maternal Grandmother Alive Mother Alive Paternal Grandfather Paternal Grandmother Sister Alive Social History Tobacco Use Types Packs/Day Years Used Date Smoking Tobacco: Never Smokeless Tobacco: Never Alcohol Use Standard Drinks/Week Comments Yes 0 (1 standard drink = 0.6 oz pur e alcohol) Comments Unknown Sex and Gender Information Value Date Recorded Sex Assigned at Not on file Legal Sex Female 10:25 PM EST Gender Identity Not on file Sexual Orientation Not on file Obstetrics History Last Filed Vital Signs Vital Sign Reading Time Taken Comments Blood Pressure 134/98 08/30/2023 10:38 AM EDT Pulse 72 08/30/2023 10:38 AM EDT Temperature - - Respiratory Rate - - Oxygen Saturation - - Inhaled Oxygen Concentration - - Weight 90.3 kg (199 lb) 03/08/2024 3:06 PM EST Height 157.5 cm (5' 2 ) 03/08/2024 3:06 PM EST Body Mass Index 36.4 03/08/2024 3:06 PM EST Plan of Treatment Health Maintenance Due Date Last Done Comments Hepatitis B Vaccines (1 of 3 - 19+ 3-dose series) 10/15/2011 Depression Screening 04/10/2022 Social Influencers of Health Screening 04/10/2022 COVID-19 Vaccine ( season) 2024 02/16/2021, 08/02/2020, 07/12/2020 Influenza Vaccine (#1) 2024 , 05/16/2018, 12/18/2016, Additional history exists Cervical Cancer Screening: HPV 07/05/2024 07/06/2019 Cholesterol Screening (Lipid Panel) 04/22/2028 04/22/2023 DTaP,Tdap,and Td Vaccines (2 - Td or Tdap) 08/02/2033 08/03/2023 Hepatitis C Screening Completed 10/16/2020 HIV Screening Completed 08/04/2023 HIB Vaccines Aged Out No longer eligi ble based on patient's age to complete this topic HPV Vaccines Aged Out No longer eligi ble based on patient's age to complete this topic Hepatitis A Vaccines Aged Out No long er eligible based on patient's age to complete this topic IPV Vaccines Aged Out No longer eligi ble based on patient's age to complete this topic MMR Vaccines Aged Out No longer eligi ble based on patient's age to complete this topic Meningococcal ACWY Vaccine Aged Out N o longer eligible based on patient's age to complete this topic Meningococcal B Vacine Aged Out No lo nger eligible based on patient's age to complete this topic Pneumococcal Vaccine: Pediatrics (0 to 5 Years) and At-Risk Patients (6 to 64 Years) Aged Out No longer eligible based on patient's age to complete this topic RSV Immunization Patients Under 20 months Aged Out No longer eligible based on patient's age to complete this topic Varicella Vaccines Aged Out No longer eligible based on patient's age to complete this topic Procedures Procedure Name Priority Date/Time Associated Diagnosis Comments EXTERNAL CLINICAL LAB 04/09/2024 EXTERNAL CLINICAL LAB 04/06/2024 EXTERNAL CLINICAL LAB 04/05/2024 EXTERNAL ULTRASOUND REPORT 04/05/2024 HIV SCREENING Routine 08/04/2023 LIPID PANEL Routine 04/22/2023 HEPATITIS C SCREENING Routine 10/16/2020 HPV Routine 07/06/2019 from Last 3 Months or Most Recently Relevant to Health Maintenance Results * External clinical lab (04/09/2024) Only the most recent of3 resultswithin the time period is included. Provider [facility] LAB BLOOD ORDERABLES Fin al Result * External Ultrasound Report (04/05/2024) Anatomical Region Laterality Modality Ultrasound Provider [facility] IMG US PROCEDURES Final Result * HIV Screening (08/04/2023) [facility] HIV Screening Abstracted Result [facility] Historical Provider HEALTH MAINTENANCE Final Result * (ABNORMAL) Lipid panel (04/22/2023) [facility] LDL/HDL Ratio 3 0 - 4 Triglycerides 169(A) 0 - 150 mg/dL Cholesterol 207(A) 0 - 200 mg/dL HDL 68 >=40 mg/dL LDL Cholesterol 106(A) 0 - 100 mg/dL Blood Venous blood specimen / Unknown Result [facility] Provider LAB BLOOD ORDERABLES Clarisse l Result * Hepatitis C Screening (10/16/2020) [facility] Hepatitis C Screening Abstracted Result [facility] Provider HEALTH MAINTENANCE Final Result * Cervical Cancer Screening: HPV (07/06/2019) [facility] Cervical Cancer Screening: HPV Abstracted ,negative Result [facility] Historical Provider HEALTH MAINTENANCE Final Result from Last 3 Months or Most Recently Relevant to Health Maintenance [place] [address] [place] [address] Care Teams Railway Switchman Relationship Specialty Start Date End Date Etienne Jerome PA [address] [place] [address] PCP - General Internal Medicine 03/12/20
== END 2024-06-19 16:06 | disposition home or self-care (01) ==
PROVIDERS: PCP Physician Assistant Medical; Visit Provider Advanced Practice Midwife
DX: Z20.2 Contact with and (suspected) exposure to infections with a predominantly sexual mode of transmission (principal)
CPT/HCPCS: 99213

== ENCOUNTER 2025-02-18 11:05 | Outpatient (REF) | payer OTHER, SELFPAY ==
--- NOTE | ~2025-02-18 | US_ITS ---
EXAMINATION: US PELVIS CLINICAL INFORMATION: Q50.5. Embryonic cyst of breath ligament. COMPARISON: April 04, 2024. TECHNIQUE: Ultrasound of the pelvis is performed using both transabdominal and transvaginal transducers along with Doppler. Transvaginal imaging is performed due to inadequate visualization transabdominally. FINDINGS: Uterus: The uterus is anteversion and retroflexion and measures 7 x 3 x 4 cm. Volume: 45 cc The double wall endometrial thickness is 2 mm. Intrauterine contraceptive device in satisfactory position without extension into the endocervical canal. The uterus is smooth in contour and has normal myometrial echogenicity. No visible fibroid. Adnexa: The ovaries are identified with flow on color Doppler interrogation. No free fluid in the cul-de-sac. Right ovary measures 3 x 3 x 3 cm. Volume: 12 cc. There is a 2.2 cm anechoic structure without flow on color Doppler interrogation or septations. Left ovary measures 3 x 2 x 1 cm. Volume: 4 cc. Scattered follicles. There is a large 4.6 cm anechoic lesion without flow on color Doppler interrogation adjacent to the left ovary. US/US pelvic and transvaginal IMPRESSION: No ovarian torsion. 4.6 cm cystic lesion, left paraovarian. 2.2 cm dominant follicle, right ovary. Status post intrauterine contraceptive device placement in satisfactory position. Electronically signed by: Matthew Read MD 02/18/2025 12:53 PM EDT
--- OUTSIDE RECORDS SUMMARY | 2025-02-18 13:31 | XMS_ITS | Clinical Summary ---
Author Organization [facility] Address [address] [place] [id number] Phone Care Team Providers Care Boat Builder And Repairer Name Role Phone Unavailable Primary Care Provider Unavailabl e Social History Tobacco Use Types Packs/Day Years Used Date Smoking Tobacco: Never Assessed Education Answer Date Recorded Are you interested in more education? Not on flaco e 11/18/2022 Are you concerned about learning? Not on file 11/18/2022 No 11/18/2022 No 11/18/2022 Digital Access Answer Date Recorded No 11/18/2022 No 11/18/2022 Reliable internet access at home? Not on file 11/18/2022 Device with a working camera? Not on file Comments Unknown Sex and Gender Information Value Date Recorded Sex Assigned at Not on file Legal Sex Female 8:21 AM EDT Gender Identity Not on file Sexual Orientation Not on file Plan of Treatment Health Maintenance Due Date Last Done Comments Adult Td,Tdap Booster 1992 DEPRESSION SCREENING 2004 SMOKING Hx and SMOKELESS TOB ACCO SCREENING 2005 HEPATITIS C SCREENING 2010 HIV ONE-TIME SCREENING (18-6 5 YEARS) 2010 PAP SMEAR 2013 INFLUENZA VACCINE (#1) 2024 COVID-19 VACCINE ( - 2024-2 6 season) 2024 HEPATITIS A VACCINES Aged Out No long er eligible based on patient's age to complete this topic HIB VACCINES Aged Out No longer eligi ble based on patient's age to complete this topic MENINGOCOCCAL VACCINES (ACWY) Aged Out No longer eligible based on patient's age to complete this topic MENINGOCOCCAL VACCINES (B) Aged Out N o longer eligible based on patient's age to complete this topic PNEUMOCOCCAL VACCINES (0-49 years) Aged Out No longer eligible based on patient's age to complete this topic Medical Devices Not on file Insurance [place] [place] [address] [facility]MO [facility] Additional Source Comments The information contained in this document represents components of the legal health record. It is not the complete legal health record.[facility]
--- OUTSIDE RECORDS SUMMARY | 2025-02-18 13:31 | XMS_ITS | Clinical Summary ---
Author Organization [facility] Address [address] [place] [address] Care Team Providers Care Metal Flow Coordinator Name Role Phone Etienne Jerome Primary Care Provider [phone] Allergies Active Allergy Reactions Criticality Noted Date [...] of 3 - 19+ 3-dose series) 10/15/2011 Alcohol/Substance Use Screening 05/02/2024 Depression Screening and Follow-Up 05/02/2024 Social Drivers of Health Annual Screening 05/02/2024 COVID-19 Vaccine (3 - 2024-2 6 season) 2024 08/02/2020, 07/12/2020 Influenza Vaccine (#1) 2024 9, 02/24/2016 DTaP,Tdap,and Td Vaccines (2 - Td or Tdap) 08/02/2033 08/03/2023 RSV Vaccine (60+ years old and patients) (1 - 1-dose 75+ series) 10/15/2067 Pneumococcal Vaccine: Pediatric (0-5 Years) and At-Risk Patients (6-50 Years) Aged Out No longer eligible based on patient's age to complete this topic Insurance [address] Care Teams Metal Flow Coordinator Relationship Specialty Start Date End Date Etienne Jerome PCP - General Internal Medicine 09/21/23
--- OUTSIDE RECORDS SUMMARY | 2025-02-18 13:31 | XMS_ITS | Clinical Summary ---
Author Organization [facility] Address [address] [place] [address] Phone Care Team Providers Care Quality Control Representative Name Role Phone Etienne Jerome Primary Care Provider [phone] Allergies Active Allergy Reactions Criticality Noted Date [...] 08/03/2023 Obsessive-compulsive disorder 08/03/2023 Anxiety 11/04/2015 Immunizations Immunization Administration Dates Next Due Influenza Quadravalent, MDCK , 0.5ml, preservative free (Flucelvax) 6mo and older 05/16/2018 Influenza trivalent, with pr eservative (Fluzone; Afluria) 6mo and older 02/24/2016 SeeControl SARS-CoV-2 COVID-19, mRNA, LNP-S, preservative free 08/02/2020,07/12/2020 [...] of 3 - 19+ 3-dose series) 10/15/2011 HPV Vaccines (1 - 3-dose SCDM series) 10/15/2019 Social Influencers of Health Screening 04/10/2022 Depression Screening 05/02/2024 Cervical Cancer Screening: HPV 07/05/2024 07/06/2019 COVID-19 Vaccine ( season) 2024 02/16/2021, 08/02/2020, 07/12/2020 Influenza Vaccine (#1) 2024 , 05/16/2018, 12/18/2016, Additional history exists Cholesterol Screening (Lipid Panel) 04/22/2028 04/22/2023 DTaP,Tdap,and Td Vaccines (2 - Td or Tdap) 08/02/2033 08/03/2023 RSV Immunization Adult Patients (1 - 1-dose 75+ series) 10/15/2067 Hepatitis C Screening Completed 10/16/2020 HIV Screening [...] age to complete this topic Meningococcal B Vaccine Aged Out No l onger eligible based on patient's age to complete this topic Pneumococcal Vaccine: Pediatrics (0 to 5 Years) and At-Risk Patients (6 to 49 Years) Aged Out No longer eligible based on patient's age to complete this topic RSV Immunization Patients Under 20 months Aged Out No longer eligible based on patient's age to complete this topic Varicella Vaccines Aged Out No longer eligible based on patient's age to complete this topic Procedures Procedure Name Priority Date/Time Associated Diagnosis Comments HIV SCREENING Routine 08/04/2023 LIPID PANEL Routine 04/22/2023 HEPATITIS C SCREENING Routine 10/16/2020 HPV Routine 07/06/2019 from Last 3 Months or Most Recently Relevant to Health Maintenance Results * HIV Screening (08/04/2023) [facility] HIV Screening Abstracted [facility] Provider HEALTH MAINTENANCE Final Result * (ABNORMAL) Lipid panel (04/22/2023) [facility] LDL/HDL Ratio 3 0 - 4 Triglycerides 169(A) 0 - 150 mg/dL Cholesterol 207(A) 0 - 200 mg/dL HDL 68 >=40 mg/dL LDL Cholesterol 106(A) 0 - 100 mg/dL Blood Venous blood specimen / Unknown [facility] Provider LAB BLOOD ORDERABLES Clarisse l Result * Hepatitis C Screening (10/16/2020) [facility] Hepatitis C Screening Abstracted [facility] Provider HEALTH MAINTENANCE Final Result * Cervical Cancer Screening: HPV (07/06/2019) [facility] Cervical Cancer Screening: HPV Abstracted ,negative [facility] Provider HEALTH MAINTENANCE Final Result from Last 3 Months or Most Recently Relevant to Health Maintenance [place] [address] [place] [address] Care Teams Quality Control Representative Relationship Specialty Start Date End Date Etienne Jerome PA [address] [place] [id number] PCP - General Internal Medicine 03/12/20
== END 2025-02-18 11:06 | disposition home or self-care (01) ==
LOC: HO.US 11:05
PROVIDERS: PCP Physician Assistant Medical; Visit Provider Obstetrics & Gynecology
DX: Q50.5 Embryonic cyst of broad ligament (principal)
CPT/HCPCS: 76830; 76856

== ENCOUNTER → 2025-02-18 11:09 | Outpatient (BNV) | payer OTHER, SELFPAY | PROVIDERS: PCP Physician Assistant Medical; Visit Provider Radiology Diagnostic Radiology | DX: N83.8 Other noninflammatory disorders of ovary, fallopian tube and broad ligament (principal); N83.01 Follicular cyst of right ovary | CPT/HCPCS: 76830; 76856 ==

== ENCOUNTER 2025-03-06 14:14 | Outpatient (AMB) | payer OTHER, SELFPAY ==
--- NOTE | 2025-03-06 14:27 | A.OFFVIS_ITS ---
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 No complaints. Last Pap was negative in 07/22 Last pelvic ultrasound done in 02/23 showed the following: Uterus: The uterus is anteversion and retroflexion and measures 7 x 3 x 4 cm. Volume: 45 cc The double wall endometrial thickness is 2 mm. Intrauterine contraceptive device in satisfactory position without extension into the endocervical canal. The uterus is smooth in contour and has normal myometrial echogenicity. No visible fibroid. Adnexa: The ovaries are identified with flow on color Doppler interrogation. No free fluid in the cul-de-sac. Right ovary measures 3 x 3 x 3 cm. Volume: 12 cc. There is a 2.2 cm anechoic structure without flow on color Doppler interrogation or septations. Left ovary measures 3 x 2 x 1 cm. Volume: 4 cc. Scattered follicles. There is a large 4.6 cm anechoic lesion without flow on color Doppler interrogation adjacent to the left ovary. 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 Sexual orientation: Straight/Heterosexual Gender identity: Female Female Reproductive History Menstrual control method: copper IUCD Date of last pap smear: 07/21/22 Review of Systems Const All systems reviewed & are unremarkable except as noted in HPI and below Card Reports as per HPI Resp Reports as per HPI GI Reports as per HPI and Reports no additional complaints Reports as per HPI Physical Exam Vital Signs: Last Vital Signs BP 122/74 03/06/25 14:29 BMI result Body Mass Index 34.0 Const General: cooperative, healthy appearing and comfortable Chest Chest palpation & inspection: normal inspection of the chest and normal palpation of entire chest wall Breast/axilla inspection: normal inspection of the breasts and normal inspection of the axillae Breast/axilla palpation: normal palpation of the breasts, normal palpation of the axillae and no axillary lymphadenopathy Resp Effort & Inspection: normal respiratory effort Auscultation: clear to auscultation bilaterally Percussion: percussion normal Cardio Palpation: normal PMI Rate: regular rate Rhythm: regular rhythm Heart sounds: no murmurs and no rubs Peripheral pulses: Peripheral pulses 2+ throughout GI Inspection: Yes normal to inspection Palpation (GI): Soft to palpation, nontender, no guarding, not rigid and No hepatosplenomegaly present Percussion: Yes normal to percussion Auscultation: normal bowel sounds Rectal Exam - Female: deferred General: Yes bladder normal to palpation External Female Exam: No lesion Speculum Exam - Vagina: normal appearance of the vagina, normal palpation, normal vaginal discharge and not erythematous Speculum Exam - Cervix: normal appearance of the cervix and normal palpation Bimanual exam- vagina & uterus: normal bimanual exam, normal palpation, uterine size normal, bladder normal to palpation, consistency normal and normal palpation Bimanual Exam- Adnexa, other: normal adnexae, no masses and no tenderness Assessment & Plan Assessment & Plan (1) Well woman exam: Code(s): Z01.419 - Encounter for gynecological examination (general) (routine) without abnormal findings Category: Medical Plan: Cotesting not indicated this year. Counseled the patient about the recommended dietary allowance of 1000 mg of Calcium & 600 IU of vitamin D. The patient was instructed to perform monthly self-breast exams and to schedule an annual exam in a year; All questions answered and the patient verbalized understanding. Instructed the patient to schedule annual exam in a year (2) Para-ovarian cyst: Code(s): Q50.5 - Embryonic cyst of broad ligament Category: Medical Plan: Discussed with the patient the finding on ultrasound paraovarian cyst stable in size and simple in appearance, the patient was reassured. All questions answered, the patient verbalized understanding Coding Level of Care Code Est Pt Prev Care 18-39y(18750) Diagnoses Well woman exam Z01.419 Para-ovarian cyst Q50.5
[2025-03-06 14:29] VITALS: BP 122/74; BMI 34.0
--- OUTSIDE RECORDS SUMMARY | 2025-03-06 17:29 | XMS_ITS | Clinical Summary ---
Author Organization [facility] Address [address] [place] [id number] Phone Care Team Providers Care Patent Prosecution Attorney Name Role Phone Unavailable Primary Care Provider [...] Not on file Insurance [place] [address] [place] [address] [facility]MO [facility] Additional Source Comments The information contained in this document represents components of the legal health record. It is not the complete legal health record.[facility]
--- OUTSIDE RECORDS SUMMARY | 2025-03-06 17:29 | XMS_ITS | Clinical Summary ---
Author Organization [facility] Address [address] [place] [address] Care Team Providers Care Marine Equipment Test Engineer Name Role Phone Etienne Jerome Primary Care Provider [phone] Allergies Active Allergy Reactions Criticality Noted Date [...] (2 - Td or Tdap) 08/02/2033 08/03/2023 Pneumococcal Vaccine: Pediatric (0-5 Years) and At-Risk Patients (6-50 Years) Aged Out No longer eligible based on patient's age to complete this topic Insurance [address] Care Teams Marine Equipment Test Engineer Relationship Specialty Start Date End Date Etienne Jerome PCP - General Internal Medicine 09/21/23
--- OUTSIDE RECORDS SUMMARY | 2025-03-06 17:29 | XMS_ITS | Clinical Summary ---
Author Organization [facility] Address [address] [place] [address] Phone Care Team Providers Care Weld Engineer Name Role Phone Etienne Jerome Primary Care Provider [phone] Allergies Active Allergy Reactions Criticality Noted Date [...] eservative (Fluzone; Afluria) 6mo and older 02/24/2016 Beddit SARS-CoV-2 COVID-19, mRNA, LNP-S, preservative free 08/02/2020,07/12/2020 [...] Name Priority Date/Time Associated Diagnosis Comments EXTERNAL ULTRASOUND REPORT 02/18/2025 EXTERNAL ULTRASOUND REPORT 02/18/2025 HIV SCREENING Routine 08/04/2023 LIPID PANEL Routine 04/22/2023 HEPATITIS C SCREENING Routine 10/16/2020 HPV Routine 07/06/2019 from Last 3 Months or Most Recently Relevant to Health Maintenance Results * External Ultrasound Report (02/18/2025) Only the most recent of2 resultswithin the time period is included. Anatomical Region Laterality Modality Ultrasound Provider Cindy Onbase IMG US PROCEDURES Final Result * HIV Screening (08/04/2023) Pathologist [facility] [place] HIV Screening Abstracted Result [facility] Provider HEALTH MAINTENANCE Final Result * (ABNORMAL) Lipid panel (04/22/2023) Pathologist [facility] [place] LDL/HDL Ratio 3 0 - 4 Triglycerides 169(A) 0 - 150 mg/dL Cholesterol 207(A) 0 - 200 mg/dL HDL 68 >=40 mg/dL LDL Cholesterol 106(A) 0 - 100 mg/dL Blood Venous blood specimen / Unknown Result [facility] Provider LAB BLOOD ORDERABLES Clarisse l Result * Hepatitis C Screening (10/16/2020) Pathologist [facility] Hepatitis C Screening Abstracted [facility] Provider HEALTH MAINTENANCE Final Result * Cervical Cancer Screening: HPV (07/06/2019) Pathologist [facility] Cervical Cancer Screening: HPV Abstracted ,negative Result [facility] Provider HEALTH MAINTENANCE Final Result from Last 3 Months or Most Recently Relevant to Health Maintenance Insurance [facility] Care Teams Weld Engineer Relationship Specialty Start Date End Date Etienne Jerome PA [address] [place] [address] PCP - General Internal Medicine 03/12/20
== END 2025-03-06 15:24 | disposition home or self-care (01) ==
LOC: HO.HWS 14:15
PROVIDERS: PCP Physician Assistant Medical; Visit Provider Obstetrics & Gynecology
DX: Z01.419 Encounter for gynecological examination (general) (routine) without abnormal findings (principal); Q50.5 Embryonic cyst of broad ligament
CPT/HCPCS: 99395; 99459